=== PATIENT | female | born 1955 | race Caucasian/White ===

== ENCOUNTER 2016-10-21 09:59 | Emergency (ER) | payer OTHER ==
[~2016-10-21 09:59] MED LIST: ALPR0.25 PO; BUTA1CAP29 PO; DIPH25CA58 PO; DULO60CA6 PO; ONDA4TAB10 SL; PRED50TA PO
--- NOTE | 2016-10-21 10:17 | PHYS DOC ---
Past Medical History Past Medical History: Anxiety, Depression, Migraines, TIA Additional Past Medical Histor: "mini stroke" Past Surgical History: Hysterectomy Alcohol Use: Rarely Drug Use: Marijuana Adult General Chief Complaint Chief Complaint: HEADACHE HPI HPI Patient is a 61 year old female who presents with severe headache. She states she has a history of migraines but this is nothing like her typical migraines. She states she was in the shower also she had a severe headache with nausea. She denies any nuchal rigidity, fevers chills. She states light does make headache worse. She describes it as a pounding sensation throughout her entire head. Review of Systems Review of Systems Constitutional: Denies fever or chills [] Eyes: Denies change in visual acuity, redness, or eye pain [] HENT: Denies nasal congestion or sore throat [] Respiratory: Denies cough or shortness of breath [] Cardiovascular: No additional information not addressed in HPI [] GI: Denies abdominal pain, nausea, vomiting, bloody stools or diarrhea [] : Denies dysuria or hematuria [] Musculoskeletal: Denies back pain or joint pain [] Integument: Denies rash or skin lesions [] Neurologic: Denies focal weakness or sensory changes, positive for headache. [] Endocrine: Denies polyuria or polydipsia [] Current Medications Current Medications Current Medications Medications (Trade) Dose Ordered Sig/Otf Start Time Stop Time Status Last Admin Dose Admin Diphenhydramine HCl (Benadryl) 50 mg 1X ONCE 10/21/16 13:30 10/21/16 13:31 DC 10/21/16 13:30 50 MG Iohexol 75 ml 75 ml 1X ONCE 10/21/16 12:00 10/21/16 12:01 DC 10/21/16 12:49 75 ML Ketorolac Tromethamine (Toradol) 30 mg 1X ONCE 10/21/16 14:45 10/21/16 14:46 DC 10/21/16 14:10 30 MG Morphine Sulfate 4 mg PRN Q15MIN PRN 10/21/16 10:30 10/22/16 10:29 10/21/16 13:40 4 MG Ondansetron HCl (Zofran) 4 mg 1X ONCE 10/21/16 10:30 10/21/16 10:31 DC 10/21/16 11:00 4 MG Promethazine HCl/ Sodium Chloride (Phenergan/Iv Sodium Chloride 0.9% 50ml) 51 ml @ 101 mls/hr 1X ONCE 10/21/16 13:30 10/21/16 14:00 DC 10/21/16 14:20 101 MLS/HR Allergies Allergies Allergies Coded Allergies Type Severity Reaction Last Updated Verified Penicillins Allergy Intermediate 12/28/14 Yes Uncoded Allergies Type Severity Reaction Last Updated Verified strawberries Allergy Unknown Unknown 12/30/14 Physical Exam Physical Exam Constitutional: Well developed, well nourished, no acute distress, non-toxic appearance. [] HENT: Normocephalic, atraumatic, bilateral external ears normal, oropharynx moist, no oral exudates, nose normal. [] Eyes: PERRLA, EOMI, conjunctiva normal, no discharge. [] Neck: Normal range of motion, no tenderness, supple, no stridor. [] Cardiovascular:Heart rate regular rhythm, no murmur [] Lungs & Thorax: Bilateral breath sounds clear to auscultation [] Abdomen: Bowel sounds normal, soft, no tenderness, no masses, no pulsatile masses. [] Skin: Warm, dry, no erythema, no rash. [] Back: No tenderness, no CVA tenderness. [] Extremities: No tenderness, no cyanosis, no clubbing, ROM intact, no edema. [] Neurologic: Alert and oriented X 3, normal motor function, normal sensory function, no focal deficits noted. [] Psychologic: Affect normal, judgement normal, mood normal. [] Current Patient Data Vital Signs Vital Signs Date Time Temp Pulse Resp B/P Pulse Ox O2 Delivery O2 Flow Rate FiO2 10/21/16 11:00 60 18 130/60 96 Room Air 10/21/16 10:55 98.1 98.1 Lab Values Laboratory Tests Test 10/21/16 11:15 White Blood Count 8.9x10^3/uL (4.0-11.0) Red Blood Count 4.71x10^6/uL (3.50-5.40) Hemoglobin 14.0g/dL (12.0-15.5) Hematocrit 42.5% (36.0-47.0) Mean Corpuscular Volume 90fL (79-100) Mean Corpuscular Hemoglobin 30pg (25-35) Mean Corpuscular Hemoglobin Concent 33g/dL (31-37) Red Cell Distribution Width 13.7% (11.5-14.5) Platelet Count 218x10^3/uL (140-400) Neutrophils (%) (Auto) 58% (31-73) Lymphocytes (%) (Auto) 31% (24-48) Monocytes (%) (Auto) 7% (0-9) Eosinophils (%) (Auto) 2% (0-3) Basophils (%) (Auto) 1% (0-3) Neutrophils # (Auto) 5.2x10^3uL (1.8-7.7) Lymphocytes # (Auto) 2.8x10^3/uL (1.0-4.8) Monocytes # (Auto) 0.6x10^3/uL (0.0-1.1) Eosinophils # (Auto) 0.2x10^3/uL (0.0-0.7) Basophils # (Auto) 0.1x10^3/uL (0.0-0.2) Prothrombin Time 11.7SEC (11.7-14.0) Prothrombin Time INR 0.9 (0.8-1.1) Sodium Level 140mmol/L (136-145) Potassium Level 4.1mmol/L (3.5-5.1) Chloride Level 104mmol/L (98-107) Carbon Dioxide Level 28mmol/L (21-32) Anion Gap 8 (6-14) Blood Urea Nitrogen 19mg/dL (7-20) Creatinine 0.9mg/dL (0.6-1.0) Estimated GFR (Cockcroft-Gault) 64.1 Glucose Level 106mg/dL (70-99) H Calcium Level 9.3mg/dL (8.5-10.1) Magnesium Level 2.0mg/dL (1.8-2.4) Total Bilirubin 0.3mg/dL (0.2-1.0) Direct Bilirubin 0.1mg/dL (0.0-0.2) Aspartate Amino Transferase (AST) 22U/L (15-37) Alanine Aminotransferase (ALT) 24U/L (14-59) Alkaline Phosphatase 70U/L (46-116) Creatine Kinase 101U/L (26-192) Creatine Kinase MB (Mass) 0.7ng/mL (0.0-3.6) Creatine Kinase MB Relative Index 0.7% (0-4) Troponin I Quantitative < 0.017ng/mL (0.000-0.055) HQ-Zdc-Z-Type Natriuretic Peptide 98pg/mL (0-124) Total Protein 7.7g/dL (6.4-8.2) Albumin 3.7g/dL (3.4-5.0) Thyroid Stimulating Hormone (TSH) 3.432uIU/mL (0.358-3.74) Laboratory Tests 10/21/16 11:15 Laboratory Tests 10/21/16 11:15 EKG EKG [] Radiology/Procedures Radiology/Procedures [facility] [id number] [place], [place] [id number] IMAGING REPORT Signed PATIENT: JUDY ESPANA ACCOUNT: [id number] : 1955 LOCATION: ER AGE: 61 SEX: F EXAM STATUS: REG ER ORD. PHYSICIAN: MARY RAO MD REASON: headache PROCEDURE: CT HEAD WO CONTRAST Clinical indications: Headache and blurred vision. Technique: Noncontrast axial cross sectional scanning of the head was performed. PQRS Compliance Statement: One or more of the following individualized dose reduction techniques were utilized for this examination: 1. Automated exposure control 2. Adjustment of the mA and/or kV according to patient size 3. Use of iterative reconstruction technique Comparison: May 06, 2016. Findings: No acute intracranial hemorrhage or midline shift or mass-effect or hydrocephalus or extra-axial fluid collection is seen. No focal hypodense area or sulci effacement is seen to indicate an acute infarct or edema radiographically. No skull fracture or pneumocephalus is seen. No opacification of the mastoid sinuses or the paranasal sinuses is seen. The maxillary sinuses are not completely seen in this study. Impression: No acute intracranial abnormality is seen. DICTATED and SIGNED BY: SPIKE ENNIS MD DATE: 10/21/16 1111 CC: MARY RAO MD; NO PCP ~ [facility] [address] [place] [address] IMAGING REPORT Signed PATIENT: JUDY ESPANA ACCOUNT: [id number] : 1955 LOCATION: ER AGE: 61 SEX: F EXAM STATUS: REG ER ORD. PHYSICIAN: MARY RAO MD REASON: Headache PROCEDURE: CT ANGIOGRAPHY HEAD AND NECK CTA of the neck and head with contrast, 10/21/2016: History: Headache Multidetector CT imaging was performed from the level of the aortic arch up through the level of the [place] following an IV bolus injection of iodinated contrast material. Multiplanar reconstructions were produced including 3-D volume rendered reconstructions of the major arteries. There is no significant narrowing at the origins of the cervicocephalic arteries from the aortic arch. The left common carotid artery in the neck is widely patent. There is no significant narrowing at the left carotid bifurcation. The left internal carotid artery is widely patent up to the level of the [place]. The left middle cerebral and anterior cerebral arteries and the visualized proximal branches are unremarkable. The anterior communicating artery shows no abnormality. The right common carotid artery in the neck is widely patent. No significant narrowing is evident at the right carotid bifurcation. The right internal carotid artery is widely patent up through the level of the [place]. The anterior cerebral and middle cerebral arteries and their visualized proximal branches are unremarkable. There are patent posterior communicating arteries bilaterally, larger on the right. There is no evidence of aneurysm at the level of the [place]. Both vertebral arteries in the neck are widely patent and are of similar size. The basilar artery is unremarkable. The posterior cerebral arteries and their major branches show no abnormality. IMPRESSION: 1. No significant carotid bifurcation disease. 2. The visualized intracranial arterial circulation shows no abnormality. DICTATED and SIGNED BY: SATNAM RUEDA MD DATE: 10/21/16 1313 CC: MARY RAO MD; NO PCP ~ Impressions: Headache Course & Med Decision Making Course & Med Decision Making Pertinent Labs and Imaging studies reviewed. (See chart for details) Patient had a noncontrast CT of her head did not show any acute abnormalities and then a CT angiogram of head and neck also nonacute. She received IV Toradol , Phenergan and Benadryl and her pain has substantially decreased. I've offered her admission however she would like to go home. She is being discharged with Phenergan and told to take [id number] Benadryl for her headache returns. Return precautions given she is a follow-up with primary care physician. She specifically instructed if she develops a fever, confusion, neck stiffness, or other concerns to return back to ER. Her and her is agreeable to plan. Dragon Disclaimer Dragon Disclaimer This electronic medical record was generated, in whole or in part, using a voice recognition dictation system. Departure Departure Impression: Primary Impression: Migraine Disposition: 01 HOME, SELF-CARE Condition: IMPROVED Referrals: SUSSY DAMIAN (PCP) Patient Instructions: General Headache Without Cause Additional Instructions: The CAT scan of her head and neck did not show any bleeding or other abnormalities. Your migraine type headache got better with Phenergan, Benadryl, Toradol. Being discharged home. You were offered admission, however he felt like he rather go home. Your being discharged with Phenergan and he can purchase [id number] Benadryl. If her headache returns, she can take these medicines as instructed. Benadryl 1 to 2 tablets every 4-6 hours as needed. She developed a fever, neck stiffness, confusion, or other concerns please return back to emergency department. He should follow up with her primary care physician within the next 4-5 days. Scripts Promethazine Hcl 25 Mg Tablet1 Tab PO PRN Q6HRS #20 TAB Prov:MARY RAO MD 10/21/16 MARY RAO MD Oct 21, 2016 10:16
[2016-10-21] MEDS ORDERED: ONDANSETRON PF 4 MG/2 ML VIAL. IV ONE (10:30)
[2016-10-21] MEDS: MORPHINE SULFATE 4 MG/ML DISP.SYRIN. IV/SQ PRN ×4 (11:00→13:40)
--- NOTE | 2016-10-21 11:16 | RAD ---
Clinical indications: Headache and blurred vision. Technique: Noncontrast axial cross sectional scanning of the head was performed. PQRS Compliance Statement: One or more of the following individualized dose reduction techniques were utilized for this examination: 1. Automated exposure control 2. Adjustment of the mA and/or kV according to patient size 3. Use of iterative reconstruction technique Comparison: May 06, 2016. Findings: No acute intracranial hemorrhage or midline shift or mass-effect or hydrocephalus or extra-axial fluid collection is seen. No focal hypodense area or sulci effacement is seen to indicate an acute infarct or edema radiographically. No skull fracture or pneumocephalus is seen. No opacification of the mastoid sinuses or the paranasal sinuses is seen. The maxillary sinuses are not completely seen in this study. Impression: No acute intracranial abnormality is seen.
[2016-10-21 11:50] LABS: CALCIUM 9.3 mg/dL (8.5-10.1); CREATININE 0.9 mg/dL (0.6-1.0); GFR 64.1; POTASSIUM 4.1 mmol/L (3.5-5.1)
[2016-10-21 11:51] LABS: BASO # 0.1 x10^3/uL (0.0-0.2); BASO % 1 % (0-3); EOS % 2 % (0-3); HEMATOCRIT 42.5 % (36.0-47.0); LYMPH # 2.8 x10^3/uL (1.0-4.8); LYMPH % 31 % (24-48); MEAN CORPUSCULAR HEMOGLOBIN 30 pg (25-35); MEAN CORPUSCULAR HGB CONC 33 g/dL (31-37); MEAN CORPUSCULAR VOLUME 90 fL (79-100); MONO % 7 % (0-9); NEUT % 58 % (31-73); PLATELET COUNT 218 x10^3/uL (140-400); RED BLOOD COUNT 4.71 x10^6/uL (3.50-5.40); RED CELL DISTRIBUTION WIDTH 13.7 % (11.5-14.5); WHITE BLOOD COUNT 8.9 x10^3/uL (4.0-11.0)
[2016-10-21 11:54] LABS: INR 0.9 (0.8-1.1); PROTHROMBIN TIME PATIENT 11.7 SEC (11.7-14.0)
[2016-10-21 11:56] LABS: ALBUMIN 3.7 g/dL (3.4-5.0); DIRECT BILIRUBIN 0.1 mg/dL (0.0-0.2); TOTAL BILIRUBIN 0.3 mg/dL (0.2-1.0); TOTAL PROTEIN 7.7 g/dL (6.4-8.2)
[2016-10-21] MEDS ORDERED: IOHEXOL 300 MG/ML 75 ML VIAL IV ONE (12:00)
[2016-10-21 12:01] LABS: CKMB INDEX 0.7 % (0-4); CKMB MASS 0.7 ng/mL (0.0-3.6)
--- NOTE | 2016-10-21 13:26 | RAD ---
CTA of the neck and head with contrast, 10/21/2016: History: Headache Multidetector CT imaging was performed from the level of the aortic arch up through the level of the [place] following an IV bolus injection of iodinated contrast material. Multiplanar reconstructions were produced including 3-D volume rendered reconstructions of the major arteries. There is no significant narrowing at the origins of the cervicocephalic arteries from the aortic arch. The left common carotid artery in the neck is widely patent. There is no significant narrowing at the left carotid bifurcation. The left internal carotid artery is widely patent up to the level of the [place]. The left middle cerebral and anterior cerebral arteries and the visualized proximal branches are unremarkable. The anterior communicating artery shows no abnormality. The right common carotid artery in the neck is widely patent. No significant narrowing is evident at the right carotid bifurcation. The right internal carotid artery is widely patent up through the level of the [place]. The anterior cerebral and middle cerebral arteries and their visualized proximal branches are unremarkable. There are patent posterior communicating arteries bilaterally, larger on the right. There is no evidence of aneurysm at the level of the [place]. Both vertebral arteries in the neck are widely patent and are of similar size. The basilar artery is unremarkable. The posterior cerebral arteries and their major branches show no abnormality. IMPRESSION: 1. No significant carotid bifurcation disease. 2. The visualized intracranial arterial circulation shows no abnormality.
[2016-10-21] MEDS ORDERED: DIPHENHYDRAMINE 50 MG/ML VIAL. IV ONE (13:30)
[2016-10-21] MEDS ORDERED: PROMETHAZINE 25 MG in IV NORMAL SALINE 50ML 50 ML IV ONE (13:30)
--- NOTE | 2016-10-21 14:07 | EKG ---
[facility] [address] [place] [address] Test Date: 2016-10-21 Test Time: 10:21:43 Pat Name: JUDY ESPANA Department: Room: Gender: F Exercise Manager: : 1955 Requested By: MARY RAO Order Number: [id number] Reading MD: iMko Chester Measurements Intervals Comfort Rate: 63 P: 50 IA: 158 QRS: 6 QRSD: 76 T: 43 QT: 380 QTc: 392 Interpretive Statements SINUS RHYTHM Electronically Signed On 11-03-2016 11:53:45 CDT by Miko Chester
[2016-10-21] MEDS ORDERED: KETOROLAC TROMETHAMINE 30 MG/ML INJ. IV ONE (14:45)
[2016-10-21] MEDS ORDERED: PROM25TA10 PO (14:54)
[2016-10-21 15:00] VITALS: BP 124/72
== END 2016-10-21 14:15 | disposition home or self-care (01) ==
LOC: ER 09:59
DX: G43.909 Migraine, unspecified, not intractable, without status migrainosus (principal); F41.9 Anxiety disorder, unspecified; F32.9 Major depressive disorder, single episode, unspecified; F12.10 Cannabis abuse, uncomplicated; Z90.710 Acquired absence of both cervix and uterus; Z88.0 Allergy status to penicillin; Z91.018 Allergy to other foods
CPT/HCPCS: 36415; 70450; 70496; 70498; 80048; 80076; 82553; 83735; 83880; 84443; 84484; 85027; 85610; 93005; 96365; 96375; 96376; 99285; J1200; J1885; J2270; J2405; J2550; Q9967

== ENCOUNTER 2016-10-26 09:50 | Emergency (ER) | payer OTHER ==
[~2016-10-26] VITALS: Ht 165.1 cm; Wt 61.2 kg
[~2016-10-26 09:50] MED LIST changes: +PROM25TA10 PO
[2016-10-26] MEDS ORDERED: DIPHENHYDRAMINE 50 MG/ML VIAL. IV ONE (10:45)
[2016-10-26] MEDS ORDERED: METOCLOPRAMIDE HCL 10 MG/2 ML VIAL. IV ONE (10:45)
[2016-10-26] MEDS ORDERED: IV NORMAL SALINE 1000ML BAG 1,000 ML IV ONE (10:45)
--- NOTE | 2016-10-26 10:49 | PHYS DOC ---
Past Medical History Past Medical History: Anxiety, Depression, Migraines, TIA Additional Past Medical Histor: "mini stroke" Past Surgical History: Hysterectomy, Other Additional Past Surgical Histo: bladder sling Additional Information: 09/12 ppd Alcohol Use: Rarely Drug Use: Marijuana Adult General Chief Complaint Chief Complaint: HEADACHE HPI HPI 61-year-old female presenting to the emergency department with a headache. She does have a history of migraine headaches. She is been seen here in our emergency department before previously worked up for subarachnoid hemorrhage including a lumbar puncture with no red blood cells clear fluid. Neurology has been consulted after hospitalization. She has had a CT angiogram and a noncontrast CT of the head which are both unremarkable for acute pathology. She presents with similar pain and headache as previous. She denies it being sudden in onset. It radiates from the top of the head down to the neck. Not associated with vision changes numbness weakness or tingling. She denies slurring of speech or weakness of the upper or lower extremities. Review of systems is negative for chest pain shortness of breath vomiting fevers chills. She denies neck stiffness or meningismus. All other review of systems is negative unless otherwise noted in history of present illness. Review of Systems Review of Systems SEE ABOVE. Current Medications Current Medications Current Medications Medications (Trade) Dose Ordered Sig/Otf Start Time Stop Time Status Last Admin Dose Admin Diphenhydramine HCl 50 mg 50 mg 1X ONCE 10/26/16 10:45 10/26/16 10:46 DC 10/26/16 12:01 50 MG Metoclopramide HCl (Reglan) 20 mg 1X ONCE 10/26/16 10:45 10/26/16 10:46 DC 10/26/16 12:00 20 MG Sodium Chloride (Iv Sodium Chloride 0.9% 1000ml Bag) 1,000 ml @ 1,000 mls/hr 1X ONCE 10/26/16 10:45 10/26/16 11:44 DC 10/26/16 12:00 1,000 MLS/HR Allergies Allergies Allergies Coded Allergies Type Severity Reaction Last Updated Verified strawberry Allergy Severe throat swelling, hives 10/26/16 Yes Penicillins Allergy Intermediate rash 10/26/16 Yes amoxicillin Allergy Intermediate rash 10/26/16 Yes Physical Exam Physical Exam Constitutional: Well developed, well nourished, no acute distress, non-toxic appearance. HENT: Normocephalic, atraumatic, bilateral external ears normal, oropharynx moist, no oral exudates, nose normal. [] Eyes: PERRLA, EOMI, conjunctiva normal, no discharge. Neck: Normal range of motion, no tenderness, supple, no stridor. Negative bradinsky's sign. Negative Kernig sign. Cardiovascular:Heart rate regular rhythm, no murmur Lungs & Thorax: Bilateral breath sounds clear to auscultation [] Abdomen: Bowel sounds normal, soft, no tenderness, no masses, no pulsatile masses. Skin: Warm, dry, no erythema, no rash. [] Back: No tenderness, no CVA tenderness. Extremities: No tenderness, no cyanosis, no clubbing, ROM intact, no edema. [] Neurologic: Alert and oriented X 3, normal motor function, normal sensory function, no focal deficits noted. Psychologic: Affect normal, judgement normal, mood normal. [] Current Patient Data Vital Signs Vital Signs Date Time Temp Pulse Resp B/P Pulse Ox O2 Delivery O2 Flow Rate FiO2 10/26/16 09:54 97.8 75 20 134/79 98 Room Air 97.8 EKG EKG [] Radiology/Procedures Radiology/Procedures [] Course & Med Decision Making Course & Med Decision Making Pertinent Labs and Imaging studies reviewed. (See chart for details) [] 61-year-old female presenting to the emergency department today with headache consistent with previous migraines. She previously has been worked up with angiogram CT of the head and lumbar puncture which were unremarkable. She has seen our doctor hemant our neurologist. She took her migraine medication home with minimal relief. Here in the emergency department she received IV Reglan and Benadryl and fluids. On reexamination she was feeling much better and subsequently discharged home to follow up with her PCP over the next 2-3 days. Dragon Disclaimer Dragon Disclaimer This electronic medical record was generated, in whole or in part, using a voice recognition dictation system. Departure Departure Impression: Primary Impression: Headache Disposition: HOME, SELF-CARE Condition: STABLE Referrals: NO PCP (PCP) NEENA WOODS MD, FERILYN MD Patient Instructions: General Headache Without Cause Additional Instructions: Thank you for allowing us to participate in your care today. Followup with your primary care physician in 3 days if your symptoms do not improve. If you do not have a primary care provider you can ask for a list of our primary care providers. Return to the emergency department you have any new or concerning findings. This should be evaluated by the primary care physician and any necessary consulting services for continued management within a few days after discharge. Return to emergency room if you have any new or concerning symptoms including but not limited to fever, chills, nausea, vomiting, intractable pain, any new rashes, chest pain, shortness of air, uncontrolled bleeding, difficulty breathing, and/or vision loss. You may have been prescribed medication that can change in your level of thinking and ability to operate machinery. These medications include hydrocodone and Ativan. Also, Benadryl has been known to do this as well. Be sure to check with your pharmacist and ask if the medications you've prescribed can affect your level of consciousness. I recommend not operating heavy machinery or driving while on medication such as these. Problem Qualifiers Primary Impression: Headache Headache type: unspecified Headache chronicity pattern: acute headache Intractability: not intractable Qualified Code: R51 - Headache SOPHIA HSU MD Oct 26, 2016 10:49
[2016-10-26 12:30] VITALS: BP 114/73
== END 2016-10-26 13:08 | disposition home or self-care (01) ==
LOC: ER 09:50
DX: R51 Headache (principal); G43.909 Migraine, unspecified, not intractable, without status migrainosus; F12.10 Cannabis abuse, uncomplicated; F17.200 Nicotine dependence, unspecified, uncomplicated; F32.9 Major depressive disorder, single episode, unspecified; F41.9 Anxiety disorder, unspecified; Z86.73 Personal history of transient ischemic attack (TIA), and cerebral infarction without residual deficits; Z88.0 Allergy status to penicillin; Z88.1 Allergy status to other antibiotic agents; Z91.018 Allergy to other foods
CPT/HCPCS: 96361; 96374; 96375; 99284; J1200; J2765; J7030

== ENCOUNTER → 2016-11-09 | Outpatient (CLI) | payer OTHER ==
[2016-10-26 12:30] VITALS: BP 114/73
--- NOTE | 2016-11-09 15:41 | RAD ---
CT of the chest without contrast, 11/09/2016: History: Lung cancer screening, smoking history one pack per day for 45 years, current smoker Noncontrast low-dose scans were obtained with multiplanar reconstructions produced. There is a calcified granuloma medially in the right upper lobe. There is also a small calcified granuloma medially in the left upper lobe adjacent to the aortic arch. There are scattered linear opacities in both lungs compatible with scars. There are streaky groundglass opacities in both lung bases suggesting atelectasis and/or scarring. These opacities have increased in the left lung base since the 12/29/2014 study. There is minimal dependent atelectasis posteriorly in the lungs. On image 118 of series #2 there is a 3 mm smooth, rounded, noncalcified nodule in the right upper lobe. No other pulmonary nodule or mass is identified. There is no evidence of pleural fluid. There is minimal calcific plaquing of the thoracic aorta without evidence of aneurysm. No mediastinal adenopathy is evident. Incidental note is made of several gallstones in the gallbladder no pericholecystic edema is seen. There are scattered spurs in the spine. A mild superior endplate deformity at T12 is probably on a degenerative basis. IMPRESSION: 1. 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 2. Mild to moderate streaky atelectasis and/or scarring in the lung bases. 3. Tiny 3 mm noncalcified right upper lobe pulmonary nodule. This qualifies as a Lung-RADS Category [address] follow-up in 12 months is suggested. 4. Cholelithiasis PQRS Compliance Statement: One or more of the following individualized dose reduction techniques were utilized for this examination: 1. Automated exposure control 2. Adjustment of the mA and/or kV according to patient size 3. Use of iterative reconstruction technique
== END | disposition home or self-care (01) ==
LOC: CT 10:13
PROVIDERS: ATTEND Family Medicine
DX: J44.9 Chronic obstructive pulmonary disease, unspecified (principal); J98.11 Atelectasis; R91.1 Solitary pulmonary nodule; K80.20 Calculus of gallbladder without cholecystitis without obstruction; F17.200 Nicotine dependence, unspecified, uncomplicated
CPT/HCPCS: 71250

== ENCOUNTER 2016-11-17 16:33 | Emergency (ER) | payer OTHER ==
[~2016-11-17] VITALS: Ht 165.1 cm; Wt 61.2 kg
[2016-11-17] MEDS ORDERED: PROCHLORPERAZINE 10 MG/2 ML VIAL. IV ONE (17:15)
[2016-11-17] MEDS ORDERED: METOCLOPRAMIDE HCL 10 MG/2 ML VIAL. IV ONE (17:15)
[2016-11-17] MEDS ORDERED: IV NORMAL SALINE 1000ML BAG 1,000 ML IV ONE (17:15)
[2016-11-17] MEDS ORDERED: diphenhydrAMINE 50 MG/ML VIAL IVP ONE (17:15)
[2016-11-17] MEDS ORDERED: KETOROLAC TROMETHAMINE 30 MG/ML INJ. IV ONE (19:15)
[2016-11-17 19:33] VITALS: BP 124/66
--- NOTE | 2016-11-18 00:26 | ED.ADGEN ---
Past Medical History Past Medical History: Anxiety, Depression, Migraines, TIA Additional Past Medical Histor: "mini stroke" Past Surgical History: Hysterectomy, Other Additional Past Surgical Histo: bladder sling Alcohol Use: Rarely Drug Use: Marijuana Adult General Chief Complaint Chief Complaint: HEADACHE HPI HPI Patient is a 61 year old with h/o chronic AGUIRRE weeks who presents with pearly controlled pain. Patient also reports fullness tearing of right ear, and right posterior neck pain. Denies injury or trauma. Patient is currently being treated by her PCP and MRI. She is taking Topamax for migraine prophylaxis and ibuprofen with limited improvement. Reports nausea, denies vomiting. No fever chills, neck stiffness. No other acute symptoms or complaints. Review of Systems Review of Systems ROS as per hPI Current Medications Current Medications Current Medications Medications (Trade) Dose Ordered Sig/Otf Start Time Stop Time Status Last Admin Dose Admin Diphenhydramine HCl (Benadryl) 25 mg 1X ONCE 11/17/16 17:15 11/17/16 17:16 DC 11/17/16 17:29 25 MG Ketorolac Tromethamine (Toradol) 30 mg 1X ONCE 11/17/16 19:15 11/17/16 19:16 DC 11/17/16 18:59 30 MG Metoclopramide HCl (Reglan) 10 mg 1X ONCE 11/17/16 17:15 11/17/16 17:16 DC 11/17/16 17:32 10 MG Prochlorperazine Edisylate (Compazine) 10 mg 1X ONCE 11/17/16 17:15 11/17/16 17:16 DC 11/17/16 17:30 10 MG Sodium Chloride 1,000 ml @ 1,000 mls/hr 1X ONCE 11/17/16 17:15 11/17/16 18:14 DC 11/17/16 17:28 1,000 MLS/HR Allergies Allergies Allergies Coded Allergies Type Severity Reaction Last Updated Verified strawberry Allergy Severe throat swelling, hives 10/26/16 Yes Penicillins Allergy Intermediate rash 10/26/16 Yes amoxicillin Allergy Intermediate rash 10/26/16 Yes Physical Exam Physical Exam Constitutional: Well developed, well nourished, no acute distress, non-toxic appearance. HENT: Normocephalic, no temporal scalp TTP, atraumatic, bilateral external ears normal, TM's pink and with clear effusions, oropharynx moist, no oral exudates, nose normal. Eyes: PERRL. Neck: Normal range of motion, no midline TTP. Cardiovascular:Heart rate regular rhythm, no murmur. Lungs & Thorax: Bilateral breath sounds clear. Abdomen: Bowel sounds normal, soft, no tenderness. Skin: Warm, dry. Back: No tenderness. Extremities: No tenderness. Neurologic: Alert and oriented X 3, normal motor function, normal sensory function, no focal deficits noted. Psychologic: Affect normal, judgement normal, mood normal. Current Patient Data Vital Signs Vital Signs Date Time Temp Pulse Resp B/P (MAP) Pulse Ox O2 Delivery O2 Flow Rate FiO2 11/17/16 19:33 54 16 124/66 (85) 94 Room Air 11/17/16 17:00 98.2 98.2 EKG EKG [] Radiology/Procedures Radiology/Procedures [] Impressions: Chronic migraine w/o acute neuro deficits. Course & Med Decision Making Course & Med Decision Making Pertinent Labs and Imaging studies reviewed. (See chart for details) [Pain improved with limited improvement. Patient requesting DC.] Dragon Disclaimer Dragon Disclaimer This electronic medical record was generated, in whole or in part, using a voice recognition dictation system. HUA LÓPEZ DO November 18, 2016 00:26
== END 2016-11-17 19:38 | disposition home or self-care (01) ==
LOC: ER 16:33
DX: G43.909 Migraine, unspecified, not intractable, without status migrainosus (principal); M54.2 Cervicalgia; G89.29 Other chronic pain; F12.10 Cannabis abuse, uncomplicated; F41.9 Anxiety disorder, unspecified; F32.9 Major depressive disorder, single episode, unspecified; Z86.73 Personal history of transient ischemic attack (TIA), and cerebral infarction without residual deficits; Z88.1 Allergy status to other antibiotic agents; Z88.0 Allergy status to penicillin; Z91.018 Allergy to other foods
CPT/HCPCS: 96361; 96374; 96375; 99285; J0780; J1200; J1885; J2765; J7030

== ENCOUNTER → 2017-10-07 | Outpatient (CLI) | payer OTHER | END | disposition home or self-care (01) | LOC: CT 08:47 | DX: Z12.2 Encounter for screening for malignant neoplasm of respiratory organs (principal); J84.10 Pulmonary fibrosis, unspecified; R91.8 Other nonspecific abnormal finding of lung field; R41.0 Disorientation, unspecified | CPT/HCPCS: 70450; 71250 ==

== ENCOUNTER → 2017-10-14 | Outpatient (CLI) | payer OTHER | END | disposition home or self-care (01) | LOC: MAMMO 12:48 | DX: Z12.31 Encounter for screening mammogram for malignant neoplasm of breast (principal) | CPT/HCPCS: 77063; 77067 ==

== ENCOUNTER 2018-10-17 06:12 | Inpatient (IN) | payer OTHER ==
[~2018-10-17] VITALS: Ht 165.1 cm; Wt 68.5 kg
[2018-10-17] MEDS ORDERED: ONDANSETRON PF 4 MG/2 ML VIAL. IV ONE (06:30)
[2018-10-17] MEDS ORDERED: IV NORMAL SALINE 1000ML BAG 1,000 ML IV SCH (06:30)
[2018-10-17] MEDS ORDERED: IOHEXOL 300 MG/ML 100ML VIAL. IV ONE (06:45)
[2018-10-17] MEDS ORDERED: IOHEXOL 240 MG/ML 50ML VIAL. PO ONE (06:45)
[2018-10-17] MEDS ORDERED: CONTRAST GIVEN. MC PRN (06:45)
[2018-10-17 06:47] LABS: BASO # 0.1 x10^3/uL (0.0-0.2); BASO % 1 % (0-3); EOS # 0.3 x10^3/uL (0.0-0.7); EOS % 3 % (0-3); HEMATOCRIT 41.5 % (36.0-47.0); HEMOGLOBIN 13.9 g/dL (12.0-15.5); LYMPH # 2.4 x10^3/uL (1.0-4.8); LYMPH % 21 % (24-48); MEAN CORPUSCULAR HEMOGLOBIN 29 pg (25-35); MEAN CORPUSCULAR HGB CONC 33 g/dL (31-37); MEAN CORPUSCULAR VOLUME 88 fL (79-100); MONO % 9 % (0-9); NEUT # 7.9 x10^3uL (1.8-7.7); NEUT % 67 % (31-73); PLATELET COUNT 241 x10^3/uL (140-400); RED BLOOD COUNT 4.72 x10^6/uL (3.50-5.40); WHITE BLOOD COUNT 11.7 x10^3/uL (4.0-11.0)
[2018-10-17 07:00] LABS: CALCIUM 9.2 mg/dL (8.5-10.1); CREATININE 0.7 mg/dL (0.6-1.0); GFR 85.1; POTASSIUM 3.9 mmol/L (3.5-5.1)
[2018-10-17 07:04] LABS: FECAL OB PT POSITIVE (NEG)
[2018-10-17 07:15] LABS: ALBUMIN 3.1 g/dL (3.4-5.0); ALBUMIN/GLOBULIN RATIO 0.8 (1.0-1.7); TOTAL BILIRUBIN 0.3 mg/dL (0.2-1.0); TOTAL PROTEIN 7.1 g/dL (6.4-8.2)
[2018-10-17] MEDS ORDERED: fentaNYL PF VIAL 100 MCG/2 ML VIAL IV ONE (07:15)
--- NOTE | 2018-10-17 07:16 | PHYS DOC ---
Past Medical History Past Medical History: Anxiety, Depression, Migraines, TIA, Other Additional Past Medical Histor: "mini stroke" Past Surgical History: Hysterectomy, Other Additional Past Surgical Histo: bladder sling Smoking: Cigarettes Alcohol Use: Rarely Drug Use: Marijuana Adult General Chief Complaint Chief Complaint: ABDOMINAL PAIN HPI HPI Patient is a 63 year old female who brought in by EMS because of abdominal pain and diarrhea. Patient states she started to have multiple episodes of nonbloody diarrhea for the last 10 days and had about 10-20 episodes of light green color stool every day. Patient complaining of frequent episodes of vomiting and generalized abdominal pain for the last 2 or 3 days as a constant pain and rated her pain 10 over 10. Patient states she vomited more than 20 times a day that usually happens after eating. Patient complaining of chills without fever, chest pain, shortness of breath, urinary symptom. Patient states her had episodes of diarrhea several days ago that last for a short time. Patient states she took Bactrim about 3 weeks ago for UTI symptom. Review of Systems Review of Systems Constitutional: Denies fever or chills [] Eyes: Denies change in visual acuity, redness, or eye pain [] HENT: Denies nasal congestion or sore throat [] Respiratory: Denies cough or shortness of breath [] Cardiovascular: No additional information not addressed in HPI [] GI: Reports abdominal pain, nausea, vomiting, diarrhea [] : Denies dysuria or hematuria [] Musculoskeletal: Denies back pain or joint pain [] Integument: Denies rash or skin lesions [] Neurologic: Denies headache, focal weakness or sensory changes [] Endocrine: Denies polyuria or polydipsia [] All other systems were reviewed and found to be within normal limits, except as documented in this note. Current Medications Current Medications Current Medications Medications (Trade) Dose Ordered Sig/Otf Start Time Stop Time Status Last Admin Dose Admin Fentanyl Citrate (Fentanyl 2ml Vial) 50 mcg 1X ONCE 10/17/18 07:15 10/17/18 07:16 DC 10/17/18 07:18 50 MCG Info (CONTRAST GIVEN -- Rx MONITORING) 1 each PRN DAILY PRN 10/17/18 06:45 10/19/18 06:44 Iohexol (Omnipaque 240 Mg/ml) 50 ml 1X ONCE 10/17/18 06:45 10/17/18 06:46 DC 10/17/18 06:45 50 ML Iohexol (Omnipaque 300 Mg/ml) 75 ml 1X ONCE 10/17/18 06:45 10/17/18 06:46 DC 10/17/18 06:45 75 ML Ketorolac Tromethamine (Toradol 30mg Vial) 30 mg 1X ONCE 10/17/18 08:45 10/17/18 08:46 DC 10/17/18 08:46 30 MG Ondansetron HCl (Zofran) 4 mg 1X ONCE 10/17/18 06:30 10/17/18 06:31 DC 10/17/18 06:34 4 MG Sodium Chloride 1,000 ml @ 1,000 mls/hr Q1H 10/17/18 06:30 10/17/18 07:29 DC 10/17/18 06:33 1,000 MLS/HR Allergies Allergies Allergies Coded Allergies Type Severity Reaction Last Updated Verified strawberry Allergy Severe throat swelling, hives 10/26/16 Yes Penicillins Allergy Intermediate rash 10/26/16 Yes amoxicillin Allergy Intermediate rash 10/26/16 Yes Physical Exam Physical Exam Constitutional: Well nourished, mild distress, non-toxic appearance. [] HENT: Normocephalic, atraumatic, oropharynx dry.] Eyes: PERRLA, EOMI, conjunctiva normal, no discharge. [] Neck: Normal range of motion, no tenderness, supple, no stridor. [] Cardiovascular:Heart rate regular rhythm, no murmur [] Lungs & Thorax: Bilateral breath sounds clear to auscultation [] Abdomen: Bowel sounds normal, mildly distended abdomen with gas, voluntary guarding, soft, no tenderness, no masses, no pulsatile masses. [] Skin: Warm, dry, no erythema, no rash. [] Back: No tenderness, no CVA tenderness. [] Extremities: No tenderness, no cyanosis, no clubbing, ROM intact, no edema. [] Neurologic: Alert and oriented X 3, normal motor function, normal sensory function, no focal deficits noted. [] Psychologic: Affect anxious, judgement normal, mood normal. [] Current Patient Data Vital Signs Vital Signs Date Time Temp Pulse Resp B/P (MAP) Pulse Ox O2 Delivery O2 Flow Rate FiO2 10/17/18 07:45 15 100 Room Air 10/17/18 07:21 63 145/90 (108) 10/17/18 06:19 97.9 97.9 Lab Values Laboratory Tests Test 10/17/18 06:30 10/17/18 06:50 10/17/18 08:37 White Blood Count 11.7 x10^3/uL (4.0-11.0) H Red Blood Count 4.72 x10^6/uL (3.50-5.40) Hemoglobin 13.9 g/dL (12.0-15.5) Hematocrit 41.5 % (36.0-47.0) Mean Corpuscular Volume 88 fL (79-100) Mean Corpuscular Hemoglobin 29 pg (25-35) Mean Corpuscular Hemoglobin Concent 33 g/dL (31-37) Red Cell Distribution Width 14.0 % (11.5-14.5) Platelet Count 241 x10^3/uL (140-400) Neutrophils (%) (Auto) 67 % (31-73) Lymphocytes (%) (Auto) 21 % (24-48) L Monocytes (%) (Auto) 9 % (0-9) Eosinophils (%) (Auto) 3 % (0-3) Basophils (%) (Auto) 1 % (0-3) Neutrophils # (Auto) 7.9 x10^3uL (1.8-7.7) H Lymphocytes # (Auto) 2.4 x10^3/uL (1.0-4.8) Monocytes # (Auto) 1.0 x10^3/uL (0.0-1.1) Eosinophils # (Auto) 0.3 x10^3/uL (0.0-0.7) Basophils # (Auto) 0.1 x10^3/uL (0.0-0.2) Sodium Level 139 mmol/L (136-145) Potassium Level 3.9 mmol/L (3.5-5.1) Chloride Level 102 mmol/L (98-107) Carbon Dioxide Level 27 mmol/L (21-32) Anion Gap 10 (6-14) Blood Urea Nitrogen 15 mg/dL (7-20) Creatinine 0.7 mg/dL (0.6-1.0) Estimated GFR (Cockcroft-Gault) 85.1 BUN/Creatinine Ratio 21 (6-20) H Glucose Level 122 mg/dL (70-99) H Lactic Acid Level 1.4 mmol/L (0.4-2.0) Calcium Level 9.2 mg/dL (8.5-10.1) Total Bilirubin 0.3 mg/dL (0.2-1.0) Aspartate Amino Transferase (AST) 17 U/L (15-37) Alanine Aminotransferase (ALT) 27 U/L (14-59) Alkaline Phosphatase 93 U/L (46-116) Total Protein 7.1 g/dL (6.4-8.2) Albumin 3.1 g/dL (3.4-5.0) L Albumin/Globulin Ratio 0.8 (1.0-1.7) L Lipase 839 U/L (73-393) H Stool Occult Blood Positive (NEG) Urine Collection Type Unknown Urine Color Yellow Urine Clarity Clear Urine pH 6.5 Urine Specific [place] <=1.005 Urine Protein Negative mg/dL (NEG-TRACE) Urine Glucose (UA) Negative mg/dL (NEG) Urine Ketones (Stick) Negative mg/dL (NEG) Urine Blood Negative (NEG) Urine Nitrite Negative (NEG) Urine Bilirubin Negative (NEG) Urine Urobilinogen Dipstick 0.2 mg/dL (0.2 mg/dL) Urine Leukocyte Esterase Negative (NEG) Urine RBC 0 /HPF (0-2) Urine WBC 0 /HPF (0-4) Urine Squamous Epithelial Cells Few /LPF Urine Bacteria 0 /HPF (0-FEW) Urine Opiates Screen Neg (NEG) Urine Methadone Screen Neg (NEG) Urine Barbiturates Neg (NEG) Urine Phencyclidine Screen Neg (NEG) Urine Amphetamine/Methamphetamine Neg (NEG) Urine Benzodiazepines Screen Pos (NEG) Urine Cocaine Screen Neg (NEG) Urine Cannabinoids Screen Pos (NEG) Urine Ethyl Alcohol Neg (NEG) Laboratory Tests 10/17/18 06:30 Laboratory Tests 10/17/18 06:30 EKG EKG [] Radiology/Procedures Radiology/Procedures [facility] [address] [place], [place] [id number] IMAGING REPORT Signed PATIENT: JUDY ESPANA ACCOUNT: [id number] : 1955 LOCATION: ER AGE: 63 SEX: F EXAM STATUS: REG ER ORD. PHYSICIAN: ALFRED GASTELUM MD REASON: Abdominal pain PROCEDURE: CT ABD PELV W/ORAL&IV CONTRAST CT of the abdomen and pelvis with contrast 10/17/2018 8:49 AM Indication: Abdominal pain, acute. Comparison study: CT of the abdomen and pelvis December 28, 2014 Technique: Multidetector CT imaging of the abdomen and pelvis was performed following the administration of IV contrast. Findings: Minimal atelectasis appears to be present lung bases. The liver is grossly unremarkable. There is cholelithiasis. Possible gallbladder wall thickening or trace pericholecystic fluid may be present, best appreciated on coronal views. Pancreas is unremarkable. Spleen is within normal limits. Renal cortical defects are seen in the left possibly representing prior infarcts or scarring. Mild distention of the renal collecting systems seen bilaterally. The bladder is distended. Findings may be physiologic. There is no evidence of bowel obstruction. No acute inflammatory changes involving the bowel are identified. Increased stool appears to be present throughout the colon. Correlate with clinical evidence of constipation. The appendix is not visualized. Correlate with surgical history. Hysterectomy noted. No significant free fluid is seen in the pelvis. No pneumoperitoneum is identified. IMPRESSION: 1. Cholelithiasis possible gallbladder wall thickening or trace pericholecystic fluid. Acute calculus cholecystitis not excluded. Ultrasound evaluation recommended 2. Increased stool throughout the colon. Correlate with evidence of constipation. 3. Attention of the bladder and mild distention of the renal collecting systems. Findings felt to most likely be physiologic. Post void evaluation via ultrasound could be performed for confirmation CT DOSING PQRS STATEMENT: One or more of the following individualized dose reduction techniques were utilized for this examination: 1. Automated exposure control 2. Adjustment of the mA and/or kV according to patient size 3. Use of iterative reconstruction technique Electronically signed by: Evgeny Mcgill MD (10/17/2018 8:55 AM) [facility] DICTATED and SIGNED BY: EVGENY MCGILL MD DATE: 10/17/18 0855 Course & Med Decision Making Course & Med Decision Making Pertinent Labs and Imaging studies reviewed. (See chart for details) Evaluation of patient in ER showed 63-year-old female patient with history of anxiety and complaining of diarrhea for 10 days and nausea and vomiting with abdominal pain for 3 days. Patient had guarding of abdomen with mild distention. Labs showed mild leukocytosis and elevation of lipase with normal liver function tests. CT showed cholelithiasis. Patient was treated with IV fluid, Zofran, fentanyl and Toradol and was able to fall asleep. Dr. Sussy Reyes accepted admission at 0916. Dragon Disclaimer Dragon Disclaimer This electronic medical record was generated, in whole or in part, using a voice recognition dictation system. Departure Departure Impression: Primary Impression: Acute pancreatitis Additional Impressions: Cholelithiasis Marijuana abuse Tobacco abuse Tobacco abuse counseling Anxiety Disposition: ADMITTED INPATIENT (at 0916) Admitting Physician: Sussy Reyes (accepted admission at 0916) Condition: IMPROVED Referrals: SUSSY REYES MD (PCP) Problem Qualifiers Primary Impression: Acute pancreatitis Pancreatitis type: biliary Acute pancreatitis complication: unspecified Qualified Codes: K85.10 - Biliary acute pancreatitis without necrosis or infection Additional Impressions: Cholelithiasis Cholelithiasis location: gallbladder Cholecystitis presence: without cholecystitis Biliary obstruction: without biliary obstruction Qualified Codes: K80.20 - Calculus of gallbladder without cholecystitis without obstruction ALFRED GASTELUM MD Oct 17, 2018 07:16
[2018-10-17] MEDS ORDERED: KETOROLAC 30 MG/ML VIAL. IV ONE (08:45)
[2018-10-17 08:49] LABS: BILIRUBIN,URINE NEGATIVE (NEG); CLARITY,URINE CLEAR; COLOR,URINE YELLOW; NITRITE,URINE NEGATIVE (NEG); PH,URINE 6.5; PROTEIN,URINE NEGATIVE (NEG-TRACE); UROBILINOGEN,URINE 0.2 mg/dL (0.2 mg/dL)
[2018-10-17 08:53] LABS: BARBITURATES NEG (NEG); BENZODIAZEPINES POS (NEG); CANNABINOIDS POS (NEG); COCAINE NEG (NEG); METHADONE NEG (NEG); OPIATES NEG (NEG); PHENCYCLIDINE NEG (NEG)
[2018-10-17 08:58] LABS: BACTERIA,URINE 0 /HPF (0-FEW); RBC,URINE 0 /HPF (0-2); SQUAMOUS EPITHELIAL CELL,UR FEW /LPF; WBC,URINE 0 /HPF (0-4)
--- NOTE | 2018-10-17 08:58 | RAD ---
CT of the abdomen and pelvis with contrast 10/17/2018 8:49 AM Indication: Abdominal pain, acute. Comparison study: CT of the abdomen and pelvis December 28, 2014 Technique: Multidetector CT imaging of the abdomen and pelvis was performed following the administration of IV contrast. Findings: Minimal atelectasis appears to be present lung bases. The liver is grossly unremarkable. There is cholelithiasis. Possible gallbladder wall thickening or trace pericholecystic fluid may be present, best appreciated on coronal views. Pancreas is unremarkable. Spleen is within normal limits. Renal cortical defects are seen in the left possibly representing prior infarcts or scarring. Mild distention of the renal collecting systems seen bilaterally. The bladder is distended. Findings may be physiologic. There is no evidence of bowel obstruction. No acute inflammatory changes involving the bowel are identified. Increased stool appears to be present throughout the colon. Correlate with clinical evidence of constipation. The appendix is not visualized. Correlate with surgical history. Hysterectomy noted. No significant free fluid is seen in the pelvis. No pneumoperitoneum is identified. IMPRESSION: 1. Cholelithiasis possible gallbladder wall thickening or trace pericholecystic fluid. Acute calculus cholecystitis not excluded. Ultrasound evaluation recommended 2. Increased stool throughout the colon. Correlate with evidence of constipation. 3. Attention of the bladder and mild distention of the renal collecting systems. Findings felt to most likely be physiologic. Post void evaluation via ultrasound could be performed for confirmation CT DOSING PQRS STATEMENT: One or more of the following individualized dose reduction techniques were utilized for this examination: 1. Automated exposure control 2. Adjustment of the mA and/or kV according to patient size 3. Use of iterative reconstruction technique Electronically signed by: Evgeny Sarmiento MD (10/17/2018 8:55 AM) [facility]
[2018-10-17 09:00] LABS: AMPHETAMINE/METHAMPHETAMINE NEG (NEG)
--- NOTE | 2018-10-17 10:49 | PDOC2 ---
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 2 days ago developed upper abdominal pain with nausea. This pain worsened, she became increasingly ill and weak Past Medical History Cardiovascular: CAD CENTRAL NERVOUS SYSTEM: Seizure, Other (AGUIRRE) Psych: Anxiety, Depression Past Surgical History Past Surgical History: Hysterectomy Family History Family History: Other (noncontributory to current illness ) Social History <1 pack per day ALCOHOL: none Drugs: Marijuana Lives: with Family Current Problem List Problem List Problems Medical Problems: (1) Acute pancreatitis Status: Acute (2) Anxiety Status: Acute (3) Cholelithiasis Status: Acute (4) Marijuana abuse Status: Acute (5) Tobacco abuse Status: Acute (6) Tobacco abuse counseling Status: Acute Current Medications Current Medications Current Medications Sodium Chloride 1,000 ml @ 1,000 mls/hr Q1H IV Last administered on 10/17/18at 06:33; Start 10/17/18 at 06:30; Stop 10/17/18 at 07:29; Status DC Ondansetron HCl (Zofran) 4 mg 1X ONCE IV Last administered on 10/17/18at 06:34; Start 10/17/18 at 06:30; Stop 10/17/18 at 06:31; Status DC Iohexol (Omnipaque 300 Mg/ml) 75 ml 1X ONCE IV Last administered on 10/17/18at 06:45; Start 10/17/18 at 06:45; Stop 10/17/18 at 06:46; Status DC Iohexol (Omnipaque 240 Mg/ml) 50 ml 1X ONCE PO Last administered on 10/17/18at 06:45; Start 10/17/18 at 06:45; Stop 10/17/18 at 06:46; Status DC Info (CONTRAST GIVEN -- Rx MONITORING) 1 each PRN DAILY PRN MC SEE COMMENTS; Start 10/17/18 at 06:45; Stop 10/19/18 at 06:44 Fentanyl Citrate (Fentanyl 2ml Vial) 50 mcg 1X ONCE IV Last administered on 10/17/18at 07:18; Start 10/17/18 at 07:15; Stop 10/17/18 at 07:16; Status DC Ketorolac Tromethamine (Toradol 30mg Vial) 30 mg 1X ONCE IV Last administered on 10/17/18at 08:46; Start 10/17/18 at 08:45; Stop 10/17/18 at 08:46; Status DC Sodium Chloride 1,000 ml @ 150 mls/hr Q6H40M IV ; Start 10/17/18 at 09:53; Stop 10/18/18 at 09:52 Active Scripts Active Promethazine Hcl 25 Mg Tablet 1 Tab PO PRN Q6HRS Benadryl (Diphenhydramine Hcl) 25 Mg Capsule 1 Cap PO PRN Q8HRS PRN Zofran Odt (Ondansetron) 4 Mg Tab.rapdis 1 Tab SL Q8HRS Fioricet 50-300-40 Mg Capsule (Butalb/Acetaminophen/Caffeine) 1 Each Capsule 1 Each PO PRN Q4HRS PRN Reported Cymbalta (Duloxetine Hcl) 60 Mg Capsule.dr 90 Mg PO HS Xanax (Alprazolam) 0.25 Mg Tablet 1 Mg PO PRN TID PRN Allergies Allergies: Coded Allergies: strawberry (Verified Allergy, Severe, throat swelling, hives, 10/26/16) Penicillins (Verified Allergy, Intermediate, rash, 10/26/16) amoxicillin (Verified Allergy, Intermediate, rash, 10/26/16) ROS General: YES: Chills, Other (+ fevers ) PSYCHOLOGICAL ROS: YES: Anxiety, Depression Eyes: No Blurry vision, No Double vision Hematological and Lymphatic: No: Bleeding Problems, Blood Clots Respiratory: No: Cough, Shortness of breath Cardiovascular: No Chest Pain, No Palpitations Gastrointestinal: Yes Other (see hpi) Genitourinary: No Dysuria, No Hematuria Musculoskeletal: No Joint Pain, No Muscle Pain Neurological: Yes Headaches; No Confusion Skin: No Pruritus, No Rash Physical Exam General: Alert, Oriented X3, Cooperative, No acute distress HEENT: PERRLA, Mucous membr. moist/pink Lungs: Clear to auscultation, Normal air movement Heart: Regular rate, Normal S1, Normal S2, No murmurs Abdomen: Soft, Other (moderate TTP epigastric, ND) Extremities: No clubbing, No cyanosis Skin: No rashes, No breakdown Neuro: Normal gait, Normal speech Psych/Mental Status: Mental status NL, Mood NL MUSCULOSKELETAL: No deformity, No swelling Vitals VITALS Vital Signs Date Time Temp Pulse Resp B/P (MAP) Pulse Ox O2 Delivery O2 Flow Rate FiO2 10/17/18 10:04 60 16 85/60 (68) 97 10/17/18 09:30 91.0 10/17/18 08:30 Room Air 10/17/18 06:19 97.9 97.9 Labs Labs Laboratory Tests Test 10/17/18 06:30 10/17/18 06:50 10/17/18 08:37 White Blood Count 11.7 x10^3/uL (4.0-11.0) Red Blood Count 4.72 x10^6/uL (3.50-5.40) Hemoglobin 13.9 g/dL (12.0-15.5) Hematocrit 41.5 % (36.0-47.0) Mean Corpuscular Volume 88 fL (79-100) Mean Corpuscular Hemoglobin 29 pg (25-35) Mean Corpuscular Hemoglobin Concent 33 g/dL (31-37) Red Cell Distribution Width 14.0 % (11.5-14.5) Platelet Count 241 x10^3/uL (140-400) Neutrophils (%) (Auto) 67 % (31-73) Lymphocytes (%) (Auto) 21 % (24-48) Monocytes (%) (Auto) 9 % (0-9) Eosinophils (%) (Auto) 3 % (0-3) Basophils (%) (Auto) 1 % (0-3) Neutrophils # (Auto) 7.9 x10^3uL (1.8-7.7) Lymphocytes # (Auto) 2.4 x10^3/uL (1.0-4.8) Monocytes # (Auto) 1.0 x10^3/uL (0.0-1.1) Eosinophils # (Auto) 0.3 x10^3/uL (0.0-0.7) Basophils # (Auto) 0.1 x10^3/uL (0.0-0.2) Sodium Level 139 mmol/L (136-145) Potassium Level 3.9 mmol/L (3.5-5.1) Chloride Level 102 mmol/L (98-107) Carbon Dioxide Level 27 mmol/L (21-32) Anion Gap 10 (6-14) Blood Urea Nitrogen 15 mg/dL (7-20) Creatinine 0.7 mg/dL (0.6-1.0) Estimated GFR (Cockcroft-Gault) 85.1 BUN/Creatinine Ratio 21 (6-20) Glucose Level 122 mg/dL (70-99) Lactic Acid Level 1.4 mmol/L (0.4-2.0) Calcium Level 9.2 mg/dL (8.5-10.1) Total Bilirubin 0.3 mg/dL (0.2-1.0) Aspartate Amino Transf (AST/SGOT) 17 U/L (15-37) Alanine Aminotransferase (ALT/SGPT) 27 U/L (14-59) Alkaline Phosphatase 93 U/L (46-116) Total Protein 7.1 g/dL (6.4-8.2) Albumin 3.1 g/dL (3.4-5.0) Albumin/Globulin Ratio 0.8 (1.0-1.7) Lipase 839 U/L (73-393) Stool Occult Blood Positive (NEG) Urine Collection Type Unknown Urine Color Yellow Urine Clarity Clear Urine pH 6.5 Urine Specific [place] <=1.005 Urine Protein Negative mg/dL (NEG-TRACE) Urine Glucose (UA) Negative mg/dL (NEG) Urine Ketones (Stick) Negative mg/dL (NEG) Urine Blood Negative (NEG) Urine Nitrite Negative (NEG) Urine Bilirubin Negative (NEG) Urine Urobilinogen Dipstick 0.2 mg/dL (0.2 mg/dL) Urine Leukocyte Esterase Negative (NEG) Urine RBC 0 /HPF (0-2) Urine WBC 0 /HPF (0-4) Urine Squamous Epithelial Cells Few /LPF Urine Bacteria 0 /HPF (0-FEW) Urine Opiates Screen Neg (NEG) Urine Methadone Screen Neg (NEG) Urine Barbiturates Neg (NEG) Urine Phencyclidine Screen Neg (NEG) Urine Amphetamine/Methamphetamine Neg (NEG) Urine Benzodiazepines Screen Pos (NEG) Urine Cocaine Screen Neg (NEG) Urine Cannabinoids Screen Pos (NEG) Urine Ethyl Alcohol Neg (NEG) Laboratory Tests Test 10/17/18 06:30 10/17/18 06:50 10/17/18 08:37 White Blood Count 11.7 x10^3/uL (4.0-11.0) Red Blood Count 4.72 x10^6/uL (3.50-5.40) Hemoglobin 13.9 g/dL (12.0-15.5) Hematocrit 41.5 % (36.0-47.0) Mean Corpuscular Volume 88 fL (79-100) Mean Corpuscular Hemoglobin 29 pg (25-35) Mean Corpuscular Hemoglobin Concent 33 g/dL (31-37) Red Cell Distribution Width 14.0 % (11.5-14.5) Platelet Count 241 x10^3/uL (140-400) Neutrophils (%) (Auto) 67 % (31-73) Lymphocytes (%) (Auto) 21 % (24-48) Monocytes (%) (Auto) 9 % (0-9) Eosinophils (%) (Auto) 3 % (0-3) Basophils (%) (Auto) 1 % (0-3) Neutrophils # (Auto) 7.9 x10^3uL (1.8-7.7) Lymphocytes # (Auto) 2.4 x10^3/uL (1.0-4.8) Monocytes # (Auto) 1.0 x10^3/uL (0.0-1.1) Eosinophils # (Auto) 0.3 x10^3/uL (0.0-0.7) Basophils # (Auto) 0.1 x10^3/uL (0.0-0.2) Sodium Level 139 mmol/L (136-145) Potassium Level 3.9 mmol/L (3.5-5.1) Chloride Level 102 mmol/L (98-107) Carbon Dioxide Level 27 mmol/L (21-32) Anion Gap 10 (6-14) Blood Urea Nitrogen 15 mg/dL (7-20) Creatinine 0.7 mg/dL (0.6-1.0) Estimated GFR (Cockcroft-Gault) 85.1 BUN/Creatinine Ratio 21 (6-20) Glucose Level 122 mg/dL (70-99) Lactic Acid Level 1.4 mmol/L (0.4-2.0) Calcium Level 9.2 mg/dL (8.5-10.1) Total Bilirubin 0.3 mg/dL (0.2-1.0) Aspartate Amino Transf (AST/SGOT) 17 U/L (15-37) Alanine Aminotransferase (ALT/SGPT) 27 U/L (14-59) Alkaline Phosphatase 93 U/L (46-116) Total Protein 7.1 g/dL (6.4-8.2) Albumin 3.1 g/dL (3.4-5.0) Albumin/Globulin Ratio 0.8 (1.0-1.7) Lipase 839 U/L (73-393) Stool Occult Blood Positive (NEG) Urine Collection Type Unknown Urine Color Yellow Urine Clarity Clear Urine pH 6.5 Urine Specific [place] <=1.005 Urine Protein Negative mg/dL (NEG-TRACE) Urine Glucose (UA) Negative mg/dL (NEG) Urine Ketones (Stick) Negative mg/dL (NEG) Urine Blood Negative (NEG) Urine Nitrite Negative (NEG) Urine Bilirubin Negative (NEG) Urine Urobilinogen Dipstick 0.2 mg/dL (0.2 mg/dL) Urine Leukocyte Esterase Negative (NEG) Urine RBC 0 /HPF (0-2) Urine WBC 0 /HPF (0-4) Urine Squamous Epithelial Cells Few /LPF Urine Bacteria 0 /HPF (0-FEW) Urine Opiates Screen Neg (NEG) Urine Methadone Screen Neg (NEG) Urine Barbiturates Neg (NEG) Urine Phencyclidine Screen Neg (NEG) Urine Amphetamine/Methamphetamine Neg (NEG) Urine Benzodiazepines Screen Pos (NEG) Urine Cocaine Screen Neg (NEG) Urine Cannabinoids Screen Pos (NEG) Urine Ethyl Alcohol Neg (NEG) Assessment/Plan Assessment/Plan gs pancreatitis diarrhea, + occult stool, with recent diarrhea(short lived), pt also recently taken abx for UTI bowel rest, hydration will ask GI to comment on diarrhea, + occult stool will likely need lap tato once acute process resolved SUJATHA ROMAN MD 10/17/18 1703: CONSULT Assessment/Plan Assessment/Plan sleeping soundly I did not wake her agree with above will follow exams, labs will need l/c at some point Thanks for consult [facility] [employer] 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
[2018-10-17] MEDS ORDERED: ALBU2.5V8 INH (11:21)
[2018-10-17 11:30] VITALS: BP 121/78
--- NOTE | 2018-10-17 11:30 | PDOC2 ---
GI CONSULT Reason For Consult: +occult stool, diarrhea, pancreatitis HPI: HPI: 63 y/o female admitted through ER - currently drowsy, falls asleep after every question I ask. Was given Fentanyl in ER. Apparently ill w/ n/v and diarrhea x 10 days. Her was also ill w/ diarrhea but improved. She also took Bactrim recently for UTI. Associated w/ upper abd discomfort - tells me worse "when throwing up." Hasn't been able to eat much. Stools "twenty times a day" - says watery. Admits to some heartburn since symptoms began - unclear if this is chronic but has been taking ranitidine QD. No dysphagia. No hematemesis, hematochezia, or melena. Denies chronic diarrhea or constipation. Typical bowel pattern is 1 stool QOD. Assumes weight loss during illness. Unclear if had previous EGD. Reports normal colonoscopy ~3 years ago "on [address] Denies PUD, GB, liver, or pancreas history. Takes Naprosyn at home. PMH: PMH: TIA, pneumonia, migraines, anxiety, depression hysterectomy, bladder suspension, ?appendectomy, tonsillectomy, ?cardiac cath FH: Family History: Other (unable to obtain) Social History: Smoke: <1 pack per day ALCOHOL: rare Drugs: Marijuana ROS: GEN: Denies fevers, chills, sweats HEENT: Denies blurred vision, sore throat CV: Denies chest pain RESP: Denies shortness of air, cough GI: Per HPI : Denies hematuria, dysuria ENDO: ?weight loss NEURO: Denies confusion, dizziness MSK: Denies weakness, joint pain/swelling SKIN: Denies jaundice, pruritus Vitals: Vitals: Vital Signs Date Time Temp Pulse Resp B/P (MAP) Pulse Ox O2 Delivery O2 Flow Rate FiO2 10/17/18 10:04 60 16 85/60 (68) 97 10/17/18 09:30 91.0 10/17/18 08:30 Room Air 10/17/18 06:19 97.9 97.9 Labs: Labs: Laboratory Tests Test 10/17/18 06:30 10/17/18 06:50 10/17/18 08:37 White Blood Count 11.7 x10^3/uL (4.0-11.0) Red Blood Count 4.72 x10^6/uL (3.50-5.40) Hemoglobin 13.9 g/dL (12.0-15.5) Hematocrit 41.5 % (36.0-47.0) Mean Corpuscular Volume 88 fL (79-100) Mean Corpuscular Hemoglobin 29 pg (25-35) Mean Corpuscular Hemoglobin Concent 33 g/dL (31-37) Red Cell Distribution Width 14.0 % (11.5-14.5) Platelet Count 241 x10^3/uL (140-400) Neutrophils (%) (Auto) 67 % (31-73) Lymphocytes (%) (Auto) 21 % (24-48) Monocytes (%) (Auto) 9 % (0-9) Eosinophils (%) (Auto) 3 % (0-3) Basophils (%) (Auto) 1 % (0-3) Neutrophils # (Auto) 7.9 x10^3uL (1.8-7.7) Lymphocytes # (Auto) 2.4 x10^3/uL (1.0-4.8) Monocytes # (Auto) 1.0 x10^3/uL (0.0-1.1) Eosinophils # (Auto) 0.3 x10^3/uL (0.0-0.7) Basophils # (Auto) 0.1 x10^3/uL (0.0-0.2) Sodium Level 139 mmol/L (136-145) Potassium Level 3.9 mmol/L (3.5-5.1) Chloride Level 102 mmol/L (98-107) Carbon Dioxide Level 27 mmol/L (21-32) Anion Gap 10 (6-14) Blood Urea Nitrogen 15 mg/dL (7-20) Creatinine 0.7 mg/dL (0.6-1.0) Estimated GFR (Cockcroft-Gault) 85.1 BUN/Creatinine Ratio 21 (6-20) Glucose Level 122 mg/dL (70-99) Lactic Acid Level 1.4 mmol/L (0.4-2.0) Calcium Level 9.2 mg/dL (8.5-10.1) Total Bilirubin 0.3 mg/dL (0.2-1.0) Aspartate Amino Transf (AST/SGOT) 17 U/L (15-37) Alanine Aminotransferase (ALT/SGPT) 27 U/L (14-59) Alkaline Phosphatase 93 U/L (46-116) Total Protein 7.1 g/dL (6.4-8.2) Albumin 3.1 g/dL (3.4-5.0) Albumin/Globulin Ratio 0.8 (1.0-1.7) Lipase 839 U/L (73-393) Stool Occult Blood Positive (NEG) Urine Collection Type Unknown Urine Color Yellow Urine Clarity Clear Urine pH 6.5 Urine Specific [place] <=1.005 Urine Protein Negative mg/dL (NEG-TRACE) Urine Glucose (UA) Negative mg/dL (NEG) Urine Ketones (Stick) Negative mg/dL (NEG) Urine Blood Negative (NEG) Urine Nitrite Negative (NEG) Urine Bilirubin Negative (NEG) Urine Urobilinogen Dipstick 0.2 mg/dL (0.2 mg/dL) Urine Leukocyte Esterase Negative (NEG) Urine RBC 0 /HPF (0-2) Urine WBC 0 /HPF (0-4) Urine Squamous Epithelial Cells Few /LPF Urine Bacteria 0 /HPF (0-FEW) Urine Opiates Screen Neg (NEG) Urine Methadone Screen Neg (NEG) Urine Barbiturates Neg (NEG) Urine Phencyclidine Screen Neg (NEG) Urine Amphetamine/Methamphetamine Neg (NEG) Urine Benzodiazepines Screen Pos (NEG) Urine Cocaine Screen Neg (NEG) Urine Cannabinoids Screen Pos (NEG) Urine Ethyl Alcohol Neg (NEG) Allergies: Coded Allergies: strawberry (Verified Allergy, Severe, throat swelling, hives, 10/26/16) Penicillins (Verified Allergy, Intermediate, rash, 10/26/16) amoxicillin (Verified Allergy, Intermediate, rash, 10/26/16) Medications: Current Medications Medications (Trade) Dose Ordered Sig/Otf Route PRN Reason Start Time Stop Time Status Last Admin Dose Admin Sodium Chloride 1,000 ml @ 1,000 mls/hr Q1H IV 10/17/18 06:30 10/17/18 07:29 DC 10/17/18 06:33 Ondansetron HCl (Zofran) 4 mg 1X ONCE IV 10/17/18 06:30 10/17/18 06:31 DC 10/17/18 06:34 Iohexol (Omnipaque 300 Mg/ml) 75 ml 1X ONCE IV 10/17/18 06:45 10/17/18 06:46 DC 10/17/18 06:45 Iohexol (Omnipaque 240 Mg/ml) 50 ml 1X ONCE PO 10/17/18 06:45 10/17/18 06:46 DC 10/17/18 06:45 Fentanyl Citrate (Fentanyl 2ml Vial) 50 mcg 1X ONCE IV 10/17/18 07:15 10/17/18 07:16 DC 10/17/18 07:18 Ketorolac Tromethamine (Toradol 30mg Vial) 30 mg 1X ONCE IV 10/17/18 08:45 10/17/18 08:46 DC 10/17/18 08:46 Imaging: Imaging: CT A/P w/ oral and IV contrast 10/17/18 Findings: Minimal atelectasis appears to be present lung bases. The liver is grossly unremarkable. There is cholelithiasis. Possible gallbladder wall thickening or trace pericholecystic fluid may be present, best appreciated on coronal views. Pancreas is unremarkable. Spleen is within normal limits. Renal cortical defects are seen in the left possibly representing prior infarcts or scarring. Mild distention of the renal collecting systems seen bilaterally. The bladder is distended. Findings may be physiologic. There is no evidence of bowel obstruction. No acute inflammatory changes involving the bowel are identified. Increased stool appears to be present throughout the colon. Correlate with clinical evidence of constipation. The appendix is not visualized. Correlate with surgical history. Hysterectomy noted. No significant free fluid is seen in the pelvis. No pneumoperitoneum is identified. IMPRESSION: 1. Cholelithiasis possible gallbladder wall thickening or trace pericholecystic fluid. Acute calculus cholecystitis not excluded. Ultrasound evaluation recommended 2. Increased stool throughout the colon. Correlate with evidence of constipation. 3. Attention of the bladder and mild distention of the renal collecting systems. Findings felt to most likely be physiologic. Post void evaluation via ultrasound could be performed for confirmation. PE: GEN: NAD HEENT: Atraumatic - keeps eyes closed for the most part LUNGS: CTAB HEART: RRR ABD: NABS, S/ND, vague epigastric discomfort track to RUQ/right periumbilical/ also some RLQ EXTREMITY: No edema SKIN: No rashes, no jaundice NEURO/PSYCH: A & O 3 - really drowsy A/P: A/P: N/v, diarrhea, upper abd pain - interestingly, CT notes increased stool throughout the colon Leukocytosis +fecal occult - checked in ER but no reports of bleeding, Hgb and BUN are WNL Mildly elevated lipase - unremarkable pancreas on CT Cholelithiasis, ?GB wall thickening - normal LFTs Heartburn - unclear chronicity or previous eval, has been taking H2 eli CRC screen - reportedly normal ~3 years ago NSAID use, recent atbx use +marijuana -- She's really drowsy - hopefully able to obtain better history later. C Diff already ordered, add stool culture. Will review finding of increased stool on CT w/ Dr. Galvan. Add PPI - IV for now, can change to PO as able. Checked w/ our office re: past scopes - not in our system. Okay to try clears per GI - defer to surgery. JOHN JANG Oct 17, 2018 11:30
[2018-10-17] MEDS: IV NORMAL SALINE 1000ML BAG 1,000 ML IV SCH ×3 (12:07→21:44)
[2018-10-17 15:00] VITALS: BP 117/73
[2018-10-17] MEDS: PANTOPRAZOLE IV PUSH 40 MG VIAL. IVP SCH (16:18)
[2018-10-17 19:00] VITALS: BP 114/74
--- NOTE | 2018-10-17 19:05 | NUR ---
Pt complain of pain. MD notified. Orders received. Will continue to monitor.
[2018-10-17] MEDS: fentaNYL PF VIAL 100 MCG/2 ML VIAL IV PRN (19:34)
[2018-10-17] MEDS ORDERED: ALBUTEROL SULFATE 2.5 MG/3 ML NEBU. NEB SCH (20:00)
[2018-10-17 23:00] VITALS: BP 124/84
[2018-10-18 03:00] VITALS: BP 117/84
[2018-10-18] MEDS: IV NORMAL SALINE 1000ML BAG 1,000 ML IV SCH (04:31)
[2018-10-18] MEDS: fentaNYL PF VIAL 100 MCG/2 ML VIAL IV PRN ×3 (05:36→20:17)
[2018-10-18] MEDS: PANTOPRAZOLE IV PUSH 40 MG VIAL. IVP SCH ×2 (05:36→17:00)
[2018-10-18 06:36] LABS: HEMATOCRIT 36.9 % (36.0-47.0); RED BLOOD COUNT 4.13 x10^6/uL (3.50-5.40); RED CELL DISTRIBUTION WIDTH 14.6 % (11.5-14.5); WHITE BLOOD COUNT 8.4 x10^3/uL (4.0-11.0)
[2018-10-18 06:57] LABS: ALBUMIN 2.4 g/dL (3.4-5.0); ALBUMIN/GLOBULIN RATIO 0.7 (1.0-1.7); CALCIUM 7.8 mg/dL (8.5-10.1); CREATININE 0.6 mg/dL (0.6-1.0); GFR 101.6; POTASSIUM 4.1 mmol/L (3.5-5.1); TOTAL BILIRUBIN 0.3 mg/dL (0.2-1.0); TOTAL PROTEIN 5.7 g/dL (6.4-8.2)
[2018-10-18 07:00] VITALS: BP 141/82
--- NOTE | 2018-10-18 08:40 | NUR ---
SW following for discharge planning. Discussed with RN, pt is from home with . RN advised no SW needs at this time. SW will continue to follow.
--- NOTE | 2018-10-18 08:51 | PDOC ---
Provider Note Provider Note [id number] SUSSY POWELL MD Oct 18, 2018 08:51
[2018-10-18] MEDS ORDERED: IPRATRPIUM/ALBUTEROL 0.5/2.5MG 3 ML NEBU. NEB SCH (09:00)
[2018-10-18] MEDS: methylPREDNISolone SOD SUCC PF 40 MG/ML VIAL. IV SCH ×2 (09:11→20:16)
[2018-10-18] MEDS: POTASSIUM CL 20MEQ D5-0.45NACL 1,000 ML IV SCH ×2 (09:12→20:23)
--- NOTE | 2018-10-18 09:24 | HP ---
ADMIT DATE: 10/17/2018 CHIEF COMPLAINT: Diarrhea and upper abdominal pain. HISTORY OF PRESENT ILLNESS: A 63-year-old white female with COPD and chronic tobacco use, stated she has had a nonbloody diarrhea for about the last week. Then, she did develop some upper abdominal pain, radiating through to the back on the right side without emesis, fever, melena, hematochezia or other symptoms. CT scan showed evidence of gallstones with mild inflammation of the gallbladder lining and she had a high lipase consistent with pancreatitis. Liver function tests and bilirubin are normal. Stool has been tested and is negative for C. diff and she has had less diarrhea up on this unit, although she continues to have abdominal pain. PAST MEDICAL HISTORY: Surgically, she has had hysterectomy. She thought her gallbladder was out, but was not correct. ALLERGIES: PENICILLIN. MEDICATIONS: Include Cymbalta, Xanax, and hydroxyzine for itching. SOCIAL HISTORY: Continued tobacco user, smoked most of her adult life. , not employed. Nondrinker. FAMILY HISTORY: Unremarkable. REVIEW OF SYSTEMS: No other complaints. OBJECTIVE: ENT: Anicteric. TMs clear. Mouth is dry. Dentures in place. NECK: Revealed no bruits, nodes or thyroid enlargement. LUNGS: Coarse inspiratory crackles and expiratory wheezes. No tachypnea is noted. No dullness. CARDIOVASCULAR: Regular rate. Heart tones of 70-80. No murmurs heard. ABDOMEN: Tender with mild guarding in the right upper quadrant and epigastrium. Lower abdominal exam was benign. Bowel sounds are minimal. BACK: Nontender to CVA percussion. EXTREMITIES: Reduced pedal pulses. No edema. No joint or skin lesions, 2+ clubbing is noted. NEUROLOGIC: Physiologic. Affect is flat. She is oriented x 4. ASSESSMENT: 1. Ongoing diarrhea with heme-positive stool. Clostridium difficile was negative, etiology likely viral, but cannot rule out bacterial at this point. It seems to be improved by n.p.o. status. 2. Upper abdominal pain, elevated lipase consistent with pancreatitis and she does have gallstones and I suspect cholecystitis as well. 3. Exacerbation of ongoing chronic obstructive pulmonary disease with wheezing and cloudy sputum production. PLAN: Start pulmonary toilet with DuoNeb and IV Solu-Medrol. We will do a chest x-ray and get a sputum culture. May need to use antibiotics at this point, we will wait and assess response to treatment. Needs to maximize pulmonary status before she can have the laparoscopic cholecystectomy that she does need at some point. SUSSY POWELL MD DR: NANETTE/johnson JOB#: [id number] / [id number]
--- NOTE | 2018-10-18 09:26 | PDOC ---
SURGICAL PROGRESS NOTE Subjective still having epigastric pain, radiating to her back loose stools Vital Signs Vital Signs Date Time Temp Pulse Resp B/P (MAP) Pulse Ox O2 Delivery O2 Flow Rate FiO2 10/18/18 07:15 Room Air 10/18/18 07:00 97.9 64 16 141/82 (101) 92 97.9 10/17/18 09:30 91.0 I&O Intake and Output 10/18/18 07:00 Intake Total 1000 ml Balance 1000 ml Intake IV Total 1000 ml # Voids 3 # Bowel Movements 2 General: Alert, Oriented X3, Cooperative, No acute distress Abdomen: Soft, Other (moderate epigastric TTP) Labs Laboratory Tests Test 10/17/18 06:30 10/17/18 06:50 10/17/18 08:37 10/18/18 05:27 White Blood Count 11.7 x10^3/uL (4.0-11.0) 8.4 x10^3/uL (4.0-11.0) Red Blood Count 4.72 x10^6/uL (3.50-5.40) 4.13 x10^6/uL (3.50-5.40) Hemoglobin 13.9 g/dL (12.0-15.5) 12.0 g/dL (12.0-15.5) Hematocrit 41.5 % (36.0-47.0) 36.9 % (36.0-47.0) Mean Corpuscular Volume 88 fL (79-100) 89 fL (79-100) Mean Corpuscular Hemoglobin 29 pg (25-35) 29 pg (25-35) Mean Corpuscular Hemoglobin Concent 33 g/dL (31-37) 33 g/dL (31-37) Red Cell Distribution Width 14.0 % (11.5-14.5) 14.6 % (11.5-14.5) Platelet Count 241 x10^3/uL (140-400) 209 x10^3/uL (140-400) Neutrophils (%) (Auto) 67 % (31-73) Lymphocytes (%) (Auto) 21 % (24-48) Monocytes (%) (Auto) 9 % (0-9) Eosinophils (%) (Auto) 3 % (0-3) Basophils (%) (Auto) 1 % (0-3) Neutrophils # (Auto) 7.9 x10^3uL (1.8-7.7) Lymphocytes # (Auto) 2.4 x10^3/uL (1.0-4.8) Monocytes # (Auto) 1.0 x10^3/uL (0.0-1.1) Eosinophils # (Auto) 0.3 x10^3/uL (0.0-0.7) Basophils # (Auto) 0.1 x10^3/uL (0.0-0.2) Sodium Level 139 mmol/L (136-145) 144 mmol/L (136-145) Potassium Level 3.9 mmol/L (3.5-5.1) 4.1 mmol/L (3.5-5.1) Chloride Level 102 mmol/L (98-107) 109 mmol/L (98-107) Carbon Dioxide Level 27 mmol/L (21-32) 24 mmol/L (21-32) Anion Gap 10 (6-14) 11 (6-14) Blood Urea Nitrogen 15 mg/dL (7-20) 10 mg/dL (7-20) Creatinine 0.7 mg/dL (0.6-1.0) 0.6 mg/dL (0.6-1.0) Estimated GFR (Cockcroft-Gault) 85.1 101.6 BUN/Creatinine Ratio 21 (6-20) 17 (6-20) Glucose Level 122 mg/dL (70-99) 99 mg/dL (70-99) Lactic Acid Level 1.4 mmol/L (0.4-2.0) Calcium Level 9.2 mg/dL (8.5-10.1) 7.8 mg/dL (8.5-10.1) Total Bilirubin 0.3 mg/dL (0.2-1.0) 0.3 mg/dL (0.2-1.0) Aspartate Amino Transf (AST/SGOT) 17 U/L (15-37) 18 U/L (15-37) Alanine Aminotransferase (ALT/SGPT) 27 U/L (14-59) 23 U/L (14-59) Alkaline Phosphatase 93 U/L (46-116) 68 U/L (46-116) Total Protein 7.1 g/dL (6.4-8.2) 5.7 g/dL (6.4-8.2) Albumin 3.1 g/dL (3.4-5.0) 2.4 g/dL (3.4-5.0) Albumin/Globulin Ratio 0.8 (1.0-1.7) 0.7 (1.0-1.7) Lipase 839 U/L (73-393) 151 U/L (73-393) Stool Occult Blood Positive (NEG) Clostridium difficile Toxin B Gene Negative (Negative) Urine Collection Type Unknown Urine Color Yellow Urine Clarity Clear Urine pH 6.5 Urine Specific [place] <=1.005 Urine Protein Negative mg/dL (NEG-TRACE) Urine Glucose (UA) Negative mg/dL (NEG) Urine Ketones (Stick) Negative mg/dL (NEG) Urine Blood Negative (NEG) Urine Nitrite Negative (NEG) Urine Bilirubin Negative (NEG) Urine Urobilinogen Dipstick 0.2 mg/dL (0.2 mg/dL) Urine Leukocyte Esterase Negative (NEG) Urine RBC 0 /HPF (0-2) Urine WBC 0 /HPF (0-4) Urine Squamous Epithelial Cells Few /LPF Urine Bacteria 0 /HPF (0-FEW) Urine Opiates Screen Neg (NEG) Urine Methadone Screen Neg (NEG) Urine Barbiturates Neg (NEG) Urine Phencyclidine Screen Neg (NEG) Urine Amphetamine/Methamphetamine Neg (NEG) Urine Benzodiazepines Screen Pos (NEG) Urine Cocaine Screen Neg (NEG) Urine Cannabinoids Screen Pos (NEG) Urine Ethyl Alcohol Neg (NEG) Laboratory Tests Test 10/18/18 05:27 White Blood Count 8.4 x10^3/uL (4.0-11.0) Red Blood Count 4.13 x10^6/uL (3.50-5.40) Hemoglobin 12.0 g/dL (12.0-15.5) Hematocrit 36.9 % (36.0-47.0) Mean Corpuscular Volume 89 fL (79-100) Mean Corpuscular Hemoglobin 29 pg (25-35) Mean Corpuscular Hemoglobin Concent 33 g/dL (31-37) Red Cell Distribution Width 14.6 % (11.5-14.5) Platelet Count 209 x10^3/uL (140-400) Sodium Level 144 mmol/L (136-145) Potassium Level 4.1 mmol/L (3.5-5.1) Chloride Level 109 mmol/L (98-107) Carbon Dioxide Level 24 mmol/L (21-32) Anion Gap 11 (6-14) Blood Urea Nitrogen 10 mg/dL (7-20) Creatinine 0.6 mg/dL (0.6-1.0) Estimated GFR (Cockcroft-Gault) 101.6 BUN/Creatinine Ratio 17 (6-20) Glucose Level 99 mg/dL (70-99) Calcium Level 7.8 mg/dL (8.5-10.1) Total Bilirubin 0.3 mg/dL (0.2-1.0) Aspartate Amino Transf (AST/SGOT) 18 U/L (15-37) Alanine Aminotransferase (ALT/SGPT) 23 U/L (14-59) Alkaline Phosphatase 68 U/L (46-116) Total Protein 5.7 g/dL (6.4-8.2) Albumin 2.4 g/dL (3.4-5.0) Albumin/Globulin Ratio 0.7 (1.0-1.7) Lipase 151 U/L (73-393) Problem List Problems Medical Problems: (1) Acute pancreatitis Status: Acute (2) Anxiety Status: Acute (3) Cholelithiasis Status: Acute (4) Marijuana abuse Status: Acute (5) Tobacco abuse Status: Acute (6) Tobacco abuse counseling Status: Acute Assessment/Plan supportive measures will review with Dr Brian WALKER following HALEIGH PLASCENCIA APRN Oct 18, 2018 09:26
[2018-10-18] MEDS: IPRATRPIUM/ALBUTEROL 0.5/2.5MG 3 ML NEBU. NEB SCH ×4 (09:30→18:20)
[2018-10-18 11:00] VITALS: BP 114/75
--- NOTE | 2018-10-18 11:06 | PDOC ---
Subjective: Subjective: I said good morning - she said "what do you want" Still not feeling well - feels cold and can't get warm. Has upper abd pain that is constant and worse w/ stooling. Denies pain pain. Tolerating liquids without vomiting. Has had three watery stools today. Still denies bleeding. Objective: Vital Signs: Vital Signs Date Time Temp Pulse Resp B/P (MAP) Pulse Ox O2 Delivery O2 Flow Rate FiO2 10/18/18 07:15 Room Air 10/18/18 07:00 97.9 64 16 141/82 (101) 92 97.9 10/17/18 09:30 91.0 Labs: Laboratory Tests Test 10/18/18 05:27 White Blood Count 8.4 x10^3/uL Red Blood Count 4.13 x10^6/uL Hemoglobin 12.0 g/dL Hematocrit 36.9 % Mean Corpuscular Volume 89 fL Mean Corpuscular Hemoglobin 29 pg Mean Corpuscular Hemoglobin Concent 33 g/dL Red Cell Distribution Width 14.6 % Platelet Count 209 x10^3/uL Sodium Level 144 mmol/L Potassium Level 4.1 mmol/L Chloride Level 109 mmol/L Carbon Dioxide Level 24 mmol/L Anion Gap 11 Blood Urea Nitrogen 10 mg/dL Creatinine 0.6 mg/dL Estimated GFR (Cockcroft-Gault) 101.6 BUN/Creatinine Ratio 17 Glucose Level 99 mg/dL Calcium Level 7.8 mg/dL Total Bilirubin 0.3 mg/dL Aspartate Amino Transf (AST/SGOT) 18 U/L Alanine Aminotransferase (ALT/SGPT) 23 U/L Alkaline Phosphatase 68 U/L Total Protein 5.7 g/dL Albumin 2.4 g/dL Albumin/Globulin Ratio 0.7 Lipase 151 U/L Imaging: CXR 10/18/18 pending PE: GEN: NAD - laying on left side LUNGS: diminished, poor effort HEART: RRR ABD: epigastric discomfort - less so RUQ to RLQ today NEURO/PSYCH: A & O 3 - more awake today A/P: Upper abd pain, diarrhea - C Diff neg., reports normal colonoscopy <5 years ago +fecal occult - no obvious bleeding, Hgb and BUN remain WNL Cholelithiasis, ?cholecystitis, mildly elevated lipase (resolved w/ normal pancreas on CT, LFTs remain WNL) +marijuana -- Continue PPI - can change to PO as able. Stool culture pending. Other per Dr. Galvan. JOHN JANG Oct 18, 2018 11:06
--- NOTE | 2018-10-18 11:13 | RAD ---
EXAM: Chest, 2 views. HISTORY: COPD. COMPARISON: 10/08/2017 FINDINGS: 2 views of the chest are obtained. There is no infiltrate, pleural effusion or pneumothorax. The heart is normal in size. IMPRESSION: No acute pulmonary finding. Electronically signed by: Sharmaine aCt MD (10/18/2018 11:10 AM) [facility]
[2018-10-18 15:00] VITALS: BP 122/69
[2018-10-18 19:00] VITALS: BP 114/60
[2018-10-18] MEDS: ALPRAZolam 0.25 MG TABLET PO PRN (20:17)
[2018-10-18] MEDS: DULoxetine HCL 30 MG CAPSULE.DR PO SCH (20:17)
[2018-10-18] MEDS: hydrOXYzine 10 MG TABLET PO PRN (20:18)
[2018-10-18 23:00] VITALS: BP 117/56
[2018-10-19 03:00] VITALS: BP 109/49
[2018-10-19] MEDS: fentaNYL PF VIAL 100 MCG/2 ML VIAL IV PRN ×4 (03:22→21:06)
[2018-10-19] MEDS: POTASSIUM CL 20MEQ D5-0.45NACL 1,000 ML IV SCH ×2 (06:26→16:23)
[2018-10-19 07:00] VITALS: BP 131/66
[2018-10-19] MEDS: IPRATRPIUM/ALBUTEROL 0.5/2.5MG 3 ML NEBU. NEB SCH ×4 (07:14→19:33)
[2018-10-19] MEDS: PANTOPRAZOLE IV PUSH 40 MG VIAL. IVP SCH (07:34)
--- NOTE | 2018-10-19 08:25 | PDOC ---
Provider Note Provider Note FEELS BETTER, NO MORE DIARRHEA, LESS SPUTUM AND NO DYSPNEA- AFEB, NO WHEEZING- CXR CLEAR - ok for lap tato when surg able, po pred SUSSY POWELL MD Oct 19, 2018 08:25
[2018-10-19] MEDS ORDERED: ACETAMINOPHEN 325 MG TABLET. PO PRN (08:30)
[2018-10-19] MEDS: predniSONE 20 MG TABLET PO SCH (08:50)
--- NOTE | 2018-10-19 10:01 | NUR ---
SW following for discharge planning. Discussed with RN, possibility of surgery. RN advised no SW needs at this time, SW will continue to follow for plan of care and any discharge planning needs.
--- NOTE | 2018-10-19 10:06 | PDOC ---
Subjective: Subjective: Feels much better - pain has improved, tolerating clears, no more diarrhea. Says was told to avoid fatty/friend foods. Objective: Vital Signs: Vital Signs Date Time Temp Pulse Resp B/P (MAP) Pulse Ox O2 Delivery O2 Flow Rate FiO2 10/19/18 08:10 Room Air 10/19/18 07:15 97 10/19/18 07:00 97.9 73 18 131/66 (87) 97.9 PE: GEN: NAD - loks much better LUNGS: CTAB HEART: RRR ABD: epigastric discomfort - better NEURO/PSYCH: A & O 3 A/P: Upper abd pain - better Diarrhea - resolved +fecal occult - no obvious bleeding, not anemic Cholelithiasis, ?cholecystitis Mildly elevated lipase - resolved -- Defer diet to surgery, await recs: re: cholecystectomy. Can pursue outpt 'scopes later on. JOHN JANG Oct 19, 2018 10:06
[2018-10-19 11:00] VITALS: BP 129/76
--- NOTE | 2018-10-19 13:20 | PDOC ---
SURGICAL PROGRESS NOTE Subjective no new complaints diarrhea has stopped Vital Signs Vital Signs Date Time Temp Pulse Resp B/P (MAP) Pulse Ox O2 Delivery O2 Flow Rate FiO2 10/19/18 11:00 97.7 70 18 129/76 (93) 96 Room Air 97.7 I&O Intake and Output 10/19/18 07:00 # Voids 3 PATIENT HAS A AYERS: No General: Alert, No acute distress Abdomen: Soft, No tenderness Labs Laboratory Tests Test 10/18/18 05:27 White Blood Count 8.4 x10^3/uL (4.0-11.0) Red Blood Count 4.13 x10^6/uL (3.50-5.40) Hemoglobin 12.0 g/dL (12.0-15.5) Hematocrit 36.9 % (36.0-47.0) Mean Corpuscular Volume 89 fL (79-100) Mean Corpuscular Hemoglobin 29 pg (25-35) Mean Corpuscular Hemoglobin Concent 33 g/dL (31-37) Red Cell Distribution Width 14.6 % (11.5-14.5) Platelet Count 209 x10^3/uL (140-400) Sodium Level 144 mmol/L (136-145) Potassium Level 4.1 mmol/L (3.5-5.1) Chloride Level 109 mmol/L (98-107) Carbon Dioxide Level 24 mmol/L (21-32) Anion Gap 11 (6-14) Blood Urea Nitrogen 10 mg/dL (7-20) Creatinine 0.6 mg/dL (0.6-1.0) Estimated GFR (Cockcroft-Gault) 101.6 BUN/Creatinine Ratio 17 (6-20) Glucose Level 99 mg/dL (70-99) Calcium Level 7.8 mg/dL (8.5-10.1) Total Bilirubin 0.3 mg/dL (0.2-1.0) Aspartate Amino Transf (AST/SGOT) 18 U/L (15-37) Alanine Aminotransferase (ALT/SGPT) 23 U/L (14-59) Alkaline Phosphatase 68 U/L (46-116) Total Protein 5.7 g/dL (6.4-8.2) Albumin 2.4 g/dL (3.4-5.0) Albumin/Globulin Ratio 0.7 (1.0-1.7) Lipase 151 U/L (73-393) Problem List Problems Medical Problems: (1) Acute pancreatitis Status: Acute (2) Anxiety Status: Acute (3) Cholelithiasis Status: Acute (4) Marijuana abuse Status: Acute (5) Tobacco abuse Status: Acute (6) Tobacco abuse counseling Status: Acute Assessment/Plan gall stone pancreatitis diarrhea, resolved d/w patient and at bedside risks of l/s tato including, but not limited to bleeding, infection, injury to bowel, liver or bile ducts with resultant need for further surgery, possibel open procedure or diarrhea post op she will proceed SUJATHA ROMAN MD Oct 19, 2018 13:20
[2018-10-19 15:00] VITALS: BP 128/69
[2018-10-19 19:00] VITALS: BP 130/60
[2018-10-19] MEDS: DULoxetine HCL 30 MG CAPSULE.DR PO SCH (20:15)
[2018-10-19] MEDS: ALPRAZolam 0.25 MG TABLET PO PRN (20:16)
[2018-10-19] MEDS: hydrOXYzine 10 MG TABLET PO PRN (20:17)
[2018-10-19 23:00] VITALS: BP 135/57
[2018-10-20] VITALS (10 sets, daily range): BP systolic 117–170; BP diastolic 60–78
[2018-10-20] MEDS: ALPRAZolam 0.25 MG TABLET PO PRN (00:04)
[2018-10-20] MEDS: POTASSIUM CL 20MEQ D5-0.45NACL 1,000 ML IV SCH ×2 (02:02→11:00)
[2018-10-20] MEDS: fentaNYL PF VIAL 100 MCG/2 ML VIAL IV PRN ×3 (02:07→11:05)
[2018-10-20] MEDS ORDERED: BUPIVAC MPF-EPI 0.5%-1:200000 30 ML VIAL. ONE (06:43)
[2018-10-20] MEDS ORDERED: IOHEXOL 300 MG/ML 100ML VIAL. ONE (06:44)
[2018-10-20] MEDS ORDERED: PROCHLORPERAZINE 10 MG/2 ML VIAL. IV PRN ×2 (07:00→10:15)
[2018-10-20] MEDS ORDERED: MORPHINE SULFATE 2 MG/ML VIAL. IV PRN ×2 (07:00→10:15)
[2018-10-20] MEDS ORDERED: IV RINGERS,LACTATED 1000ML 1,000 ML IV SCH ×2 (07:00→10:09)
[2018-10-20] MEDS ORDERED: HYDROmorphone 2 MG/ML VIAL IV PRN ×2 (07:00→10:15)
[2018-10-20] MEDS ORDERED: fentaNYL PF VIAL 100 MCG/2 ML VIAL IV PRN ×3 (07:00→10:15)
[2018-10-20] MEDS ORDERED: PANTOPRAZOLE 40 MG TABLET.DR. PO SCH (07:30)
[2018-10-20] MEDS: predniSONE 20 MG TABLET PO SCH (08:00)
[2018-10-20] MEDS: IPRATRPIUM/ALBUTEROL 0.5/2.5MG 3 ML NEBU. NEB SCH ×2 (08:00→10:49)
[2018-10-20] MEDS ORDERED: PROPOFOL 20 ML IV ONE (08:06)
[2018-10-20] MEDS ORDERED: LIDOCAINE 2% PF 5 ML VIAL. ONE (08:06)
[2018-10-20] MEDS ORDERED: DEXAMETHASONE SOD PHOS 20 MG/5 ML VIAL. ONE (08:07)
[2018-10-20] MEDS ORDERED: ONDANSETRON PF 4 MG/2 ML VIAL. ONE (08:07)
[2018-10-20] MEDS ORDERED: ROCURONIUM 50 MG/5 ML VIAL. ONE (08:08)
[2018-10-20] MEDS ORDERED: MIDAZOLAM HCL/PF 2 MG/2 ML VIAL. ONE (08:09)
[2018-10-20] MEDS ORDERED: fentaNYL PF VIAL 100 MCG/2 ML VIAL ONE ×2 (08:09→09:21)
[2018-10-20] MEDS ORDERED: GLUCAGON,HUMAN RECOMBINANT 1 MG/ML VIAL. ONE (08:32)
--- NOTE | 2018-10-20 08:40 | PDOC ---
Provider Note Provider Note pt in surgwery re orlando godwin, will follow SUSSY POWELL MD Oct 20, 2018 08:40
[2018-10-20] MEDS ORDERED: SURGICEL HEMOSTAT 2X14 EACH. ONE (08:42)
[2018-10-20] MEDS ORDERED: SURGICEL HEMOSTAT 4X8 EACH. ONE (08:42)
[2018-10-20] MEDS ORDERED: hydrALAZINE 20 MG/ML VIAL. ONE (09:07)
[2018-10-20] MEDS ORDERED: GLYCOPYRROLATE 1 MG/5 ML VIAL. ONE (09:08)
[2018-10-20] MEDS ORDERED: NEOSTIGMINE METHYLSULFATE 5 MG/5 ML SYRINGE. ONE (09:08)
--- NOTE | 2018-10-20 09:19 | NUR ---
Pt was taken down to surgery center at 0800, for lap cholecystectomy. Pt is stable, alert x4. Will resume care over this pt after she returns.
[2018-10-20] MEDS ORDERED: ESMOLOL 100 MG/10 ML VIAL. IVP ONE (09:25)
--- NOTE | 2018-10-20 09:58 | PDOC ---
Objective: Vital Signs: Vital Signs Date Time Temp Pulse Resp B/P (MAP) Pulse Ox O2 Delivery O2 Flow Rate FiO2 10/20/18 08:05 97.2 55 20 179/83 98 Room Air 97.2 Labs: STOOL CULTURE Final Final report STOOL CULT RES 1 Final Comment No Salmonella or Shigella recovered. CAMPY Preliminary Preliminary report CAMPY RES 1 Preliminary Comment No Campylobacter species isolated. Performed at: DA - [facility] [id number] [facility] [address], [place], [place] [id number] [employer] Pump Servicer: AILYN Nino MD, Phone: [phone] SHIGA TOXIN PENDING Imaging: IOC 10/20/18 pending PE: out for surgery A/P: +fecal occult - no obvious bleeding, Hgb WNL Cholelithiasis w/ mildly elevated lipase, ?cholecystitis -- Cholecystectomy today, will follow. JOHN JANG Oct 20, 2018 09:58
[2018-10-20] MEDS ORDERED: IV 1/2 NORMAL SALINE 1,000 ML IV SCH (10:08)
[2018-10-20] MEDS ORDERED: ENOXAPARIN 40 MG/0.4 ML SYRINGE. SQ SCH (10:15)
[2018-10-20] MEDS ORDERED: 0.9 % SODIUM CHLORIDE 10 ML DISP.SYRIN. IV PRN (10:15)
[2018-10-20] MEDS ORDERED: oxyCODONE/APAP 5/325 1 TAB TABLET PO PRN (10:15)
[2018-10-20] MEDS ORDERED: DEXTROSE 50% 25 GM / 50ML DISP.SYRIN. IV PRN (10:15)
[2018-10-20] MEDS ORDERED: diphenhydrAMINE HCL 25 MG CAPSULE PO PRN (10:15)
[2018-10-20] MEDS ORDERED: LIDOCAINE 1% PF 2 ML VIAL. ID PRN (10:15)
[2018-10-20] MEDS ORDERED: ONDANSETRON PF 4 MG/2 ML VIAL. IV PRN ×2 (10:15)
--- NOTE | 2018-10-20 10:15 | PDOC ---
BRIEF OPERATIVE NOTE Date: Oct 20, 2018 Pre-Op Diagnosis gall stone pancreatitis Post-Op Diagnosis same Procedure Performed l/s cholecystectomy with cholangiograms Surgeon Brian Anesthesia Type: General Blood Loss 10cc IV Fluid 900cc Specimens Obtained GB Findings supple GB, with stones, normal grams Complications none SUJATHA ROMAN MD Oct 20, 2018 10:15
--- NOTE | 2018-10-20 10:15 | RAD ---
Examination: CHOLANGIOGRAM INTRAOPERATIVE History: CHOLANGIOGRAMS IN OR WITH C-ARM, FL TIME =.27 MINUTES 6 IMAGES SAVED. Comparison/Correlation: None Findings: A total of 6 images of intraoperative shuntogram were provided. Fluoroscopy was utilized for 0.27 minutes. Right upper quadrant cholecystectomy clips are present. Contrast is noted within the common bile duct or biliary tree. Contrast is noted within the cystic duct remnant. No extravasation of contrast. No suspicious filling defects or strictures identified. No dilatation. Impression: Cholecystectomy. No extravasation of contrast. No stricture or suspicious filling defect. Electronically signed by: Christian Sands MD (10/20/2018 10:11 AM) [facility]
--- NOTE | 2018-10-20 12:02 | NUR ---
SW following for discharge planning. Discussed with RN, pt had surgery this morning. RN advised no SW needs at this time. SW will continue to follow.
--- NOTE | 2018-10-20 12:46 | OP ---
DATE OF SURGERY: 10/20/2018 PREOPERATIVE DIAGNOSIS: Gallstone pancreatitis. POSTOPERATIVE DIAGNOSIS: Gallstone pancreatitis. PROCEDURE: Laparoscopic cholecystectomy with cholangiogram. SURGEON: Sujatah Roman MD ANESTHESIA: General endotracheal. ESTIMATED BLOOD LOSS: 10. IV FLUID: 900. INDICATIONS: The patient is a 63-year-old admitted with diarrhea and gallstone pancreatitis. Her diarrhea resolved. She is brought for cholecystectomy. OPERATIVE FINDINGS: The liver was generous. Gallbladder was supple with stones visible. Cholangiograms were normal. Visual inspection of the remainder of the abdomen failed to reveal obvious abnormalities. DESCRIPTION OF PROCEDURE: The patient was brought to the operating suite, given a general endotracheal anesthetic and the abdomen prepped and draped in usual sterile fashion. A supraumbilical incision was infiltrated with local anesthetic, incised and a 5 mm Visiport used to safely gain access into the abdominal cavity, taking care to avoid injury to abdominal contents. Pneumoperitoneum established. Camera inserted. Inspection carried out with results as noted above. With the table in reverse Trendelenburg rolled to the left, the epigastric, midclavicular and lateral ports were placed under direct vision. The gallbladder was retracted superolaterally and omental adhesions along the inferior aspect were carefully taken down with blunt and cautery dissection, avoiding injury to the adjacent bowel. The cystic duct and cystic artery were identified. The duct was clipped on the gallbladder side. Cholangiograms were made. These were normal. In light of this, the catheter was removed. The cystic duct was clipped x 3 and divided, taking care to avoid injury or compromise of the common duct. The cystic artery was isolated, clipped and divided and gallbladder freed from the bed with cautery dissection and placed in an EndoCatch bag. No evidence of bile leak seen in the fossa. Hemostasis obtained with cautery and a small piece of Surgicel. Table returned to level. Gallbladder delivered through the epigastric incision. Epigastric incision closed with interrupted 0 Vicryl suture. Intra-abdominal pressure decreased to 6 cm of water. No bleeding from the epigastric closure or from the midclavicular or lateral port sites after their removal. Abdomen decompressed, camera slowly removed, no bleeding seen. Skin incisions closed with subcuticular 4-0 Monocryl. Steri-Strips and sterile dressings applied. The patient awakened from her anesthetic and taken to the recovery room in satisfactory condition. SUJATHA ROMAN MD DR: Russel JOB#: [id number] / [id number]
--- NOTE | 2018-10-20 16:24 | NUR ---
Pt was given discharge instructions, follow up info, new prescriptions and teaching. Pt is stable. Doing labs around nursing station. Alertx4. Pt is requesting to go home. Dr. Torres called, Dr. Reyes called. Pt has surgery today and is considered stable enough to return home. Will follow up within 2 weeks with surgery. All belongings left with pt. Pt left at 1600, escorted by [facility], with family member driving her back home. Iv removed. No tele.
[2018-10-20] MEDS ORDERED: DOCUSATE SODIUM 100 MG CAPSULE. PO SCH (21:00)
--- NOTE | 2018-10-20 22:38 | DS ---
DATE OF DISCHARGE: 10/20/2018 HOSPITAL SUMMARY: A 63-year-old white female with COPD who came in with abdominal pain and some diarrhea. CT scan showed evidence of gallstones with inflammatory changes of the gallbladder. C. diff toxin was negative. CBC and chemistry profile and liver function tests were all within normal limits. Her pain and symptoms were felt to be compatible with gallstones. She was treated preoperatively with some IV Solu-Medrol and respiratory treatments because of her COPD and Dr. Vines performed a laparoscopic cholecystectomy on 10/20/2018. She desired to go home that evening as she was doing well and was able to be discharged at that point. FINAL DIAGNOSES: 1. Acute cholecystitis with cholelithiasis. 2. Acute exacerbation of chronic obstructive pulmonary disease. 3. Chronic tobacco and marijuana abuse. OPERATION, PROCEDURES AND COMPLICATIONS: Her procedure would be laparoscopic cholecystectomy with cholangiogram. Complications none. CONSULTATIONS: Dr. Torres and Dr. Galvan. DISPOSITION: Home meds remain the same. No steroids or antibiotics were prescribed. Complete tobacco and marijuana avoidance for long benefit. Office followup with Dr. Powell in [address] Torres in 1 week as well. PROGNOSIS: Guarded. SUSSY POWELL MD DR: NANETTE/johnson JOB#: [id number] / [id number]
--- NOTE | 2018-10-21 16:07 | PATHOLOGY ---
[facility] Accession Number: [id number] . 01 Material submitted: . gallbladder - GALLBLADDER . 01 Clinical history: . Gallstone/pancreatitis . 02 Diagnosis: Gallbladder, laparoscopic cholecystectomy: - Cholelithiasis. - Chronic cholecystitis with increased eosinophils. - Focal lipogranulomata of gallbladder neck lymph node. . (JPM:mml; 10/21/2018) QL/10/21/2018 . 02 Comment: There is no evidence of malignancy. . (JPM:mml; 10/21/2018) . 02 Electronically signed: . Riki Vasquez MD, Pathologist NPI- [id number] . 01 Gross description: . The specimen is received in formalin, labeled "Amanda Durán, gallbladder" and consists of an intact, pink-yoder, smooth, and hemorrhagic gallbladder measuring 8.3 cm in length and up to 2.7 cm in diameter. The margin is inked black. Opening reveals a lumen containing thick green material and multiple green smooth calculi measuring between 0.2 cm and 1.9 cm which grossly occlude the neck. The mucosa is pink-red and trabeculated with an average wall thickness of 0.1 cm. No masses are identified. Located adjacent to the gallbladder neck is a lymph node candidate measuring 0.5 cm. Project Associate sections are submitted in A1. (SDY; 10/20/2018) SYU/SYU . 02 Pathologist provided ICD-10: K80.10 . 02 CPT . 495456 Specimen Comment: A courtesy copy of this report has been sent to Specimen Comment: [phone], , . Specimen Comment: Report sent to ,DR POWELL / DR GASTELUM Performed at: 01 [facility] [id number] [facility] [address], [place], [place] [id number] MD Brien Irving MD Phone: [phone] Performed at: 02 [facility] [address], [place] [id number] MD Riki Vasquez MD Phone: [phone]
== END 2018-10-20 16:28 | disposition home or self-care (01) | DRG 417 ==
LOC: ER 06:12 → 4 NORTH 09:16
PROVIDERS: ADMIT Family Medicine; ATTEND Family Medicine
PROC: BF121ZZ Fluoroscopy of Gallbladder using Low Osmolar Contrast (ICD-10-PCS; 2018-10-20)
PROC: 0FT44ZZ Resection of Gallbladder, Percutaneous Endoscopic Approach (ICD-10-PCS; principal; 2018-10-20 08:30)
DX: K80.00 Calculus of gallbladder with acute cholecystitis without obstruction (principal); K85.10 Biliary acute pancreatitis without necrosis or infection; J44.1 Chronic obstructive pulmonary disease with (acute) exacerbation; F41.9 Anxiety disorder, unspecified; F12.10 Cannabis abuse, uncomplicated; F17.210 Nicotine dependence, cigarettes, uncomplicated; F32.9 Major depressive disorder, single episode, unspecified; I25.10 Atherosclerotic heart disease of native coronary artery without angina pectoris; Z87.01 Personal history of pneumonia (recurrent); Z86.73 Personal history of transient ischemic attack (TIA), and cerebral infarction without residual deficits; Z90.710 Acquired absence of both cervix and uterus; Z88.1 Allergy status to other antibiotic agents; Z88.0 Allergy status to penicillin; Z91.018 Allergy to other foods; Z71.6 Tobacco abuse counseling
CPT/HCPCS: 36415; 71046; 74177; 74300; 80053; 80307; 81001; 82274; 83605; 83690; 85025; 85027; 87045; 87493; 88304; 94640; 94760; 96374; 96375; A7015; C9113; J0360; J1100; J1610; J1885; J2001; J2250; J2405; J2704; J2710; J2920; J3010; J3490; J7030; J7120; J7512; J7620; Q9966; Q9967; 99285-25

== ENCOUNTER → 2019-05-11 | Outpatient (CLI) | payer OTHER, MEDICAID ==
[2018-10-20 15:00] VITALS: BP 139/67
[~2019-05-11] MED LIST changes: +ALBU2.5V8 INH; +CYCL10TA2 PO; +HYDR25TA PO; +IOHEXOL 180 MG/ML 10 ML VIAL. ONE; +OXYC1TAB15 PO; +methylPREDNISolone ACETATE 40 MG/ML VIAL. ONE; +methylPREDNISolone ACETATE 80 MG/ML VIAL. ONE
--- NOTE | 2019-05-11 21:04 | PAIN ---
DATE OF SERVICE: 05/11/2019 INITIAL CONSULTATION FOR PAIN CLINIC CHIEF COMPLAINT: Low back and right lower extremity pain. HISTORY OF PRESENT ILLNESS: This is a 63-year-old female who presents with history of pain for about 6 months, not a result of any specific injury or action she is aware of, but it has got worse over a time in the low back with radiating pain in the right leg now and right anterior thigh, anterior medial thigh, medial lower leg as well as the posterior gluteus, posterior thigh, posterior lower leg into the foot, top of the foot and base of the foot with walking, standing, changing positions; much worse with ambulation, better with sitting down or lying down. The patient reports it still awakens her from sleep fairly frequently, sometimes up to 3-4 times a night. The patient reports it does not affect her bowel or bladder control, but she does use a cane and she is holding it in her left hand and has it with her today. The patient has tried Percocet as well as Flexeril, neither of which has decreased the pain significantly. The patient reports the pain is constant, sharp, stabbing, throbbing, shooting with tingling and numbness in the right lower extremity, burning, primarily at night, aching, cold as well on the right leg. The patient rates her disability rating from 0-10, 10 being the worst; it is a 9 with family and home responsibilities; 8 with self-care; 10 with recreation, social activity, occupation, sexual behavior and life-support activities. The patient did have MRI scan of the lumbar spine, showing multilevel degenerative changes, spondylitic disk at L2-L3 with superimposed right lateral disk protrusion, narrowing of the right lateral recess. Disk protrusion may abut the descending right L3 nerve root. L3-L4 shows broad-based posterior disk bulge and facet hypertrophy, mild right and no significant left neural foraminal narrowing. L4-L5 shows small broad-based posterior disk bulge and severe arthropathy with minimal right and mild left neural foraminal narrowing. The patient reports no loss of motor function, but significant fatigability in the right lower extremity with walking or standing, better with sitting and leaning forward. She reports when she goes to a store, she does use the electric cart if she has one available. The patient has not tried any formal physical therapies currently. No recent chiropractic treatments or other modalities. She has been doing some stretching on her own and trying to exercise as best as possible. PAST MEDICAL HISTORY: Significant for shortness of breath, cigarette smoking, arthritis and TIA. PAST SURGICAL HISTORY: Previous surgeries include hysterectomy and carpal tunnel repair bilaterally. CURRENT MEDICATIONS: Include alprazolam, Cymbalta, ProAir inhaler, hydroxyzine, oxycodone and cyclobenzaprine. ALLERGIES: THE PATIENT IS ALLERGIC TO PENICILLIN AND STRAWBERRIES. SOCIAL HISTORY: The patient does not drink alcohol, does smoke less than a pack a day for the past 45 years. Also smokes marijuana daily. No other illegal, illicit or recreational drugs. She is , lives with her spouse, lives locally in [place], [place] and reports she is currently retired. REVIEW OF SYSTEMS: The patient's review of systems is positive for those items mentioned in the history of present illness. All systems reviewed and otherwise negative. It is complete, full and well documented on the patient's chart. PHYSICAL EXAMINATION: VITAL SIGNS: The patient's blood pressure is 125/78, pulse 71, respirations 18 and temperature is 97.9 degrees Fahrenheit. Height is 5 feet 5 inches, weight is 167 pounds. GENERAL: The patient is awake, alert, oriented, appropriate, very pleasant demeanor. HEENT: Exam shows normocephalic, atraumatic. Extraocular movements are intact and symmetrical. Oral cavity, mucous membranes are moist and pink. Dentition is intact. NECK: Shows anterior throat supple, without palpable lymphadenopathy noted. Swallow reflex is symmetrical. CHEST: Shows normal on inspection. Breath sounds are clear bilaterally. HEART: Shows S1, S2 clear. No murmurs auscultated. ABDOMEN: Soft, nontender and nondistended. No palpable organomegaly is noted. No rebound or guarding demonstrated. BACK: Shows spine grossly in the midline. Normal-appearing thoracic kyphosis, cervical lordotic curvature and lumbar lordotic curvature. Lumbar paraspinous muscle shows symmetrical on inspection. On palpation, it shows some moderate tenderness diffusely, but only diffusely without significant trigger points. No radiation of pain, no asymmetry, no tenderness over the sacrum or sacroiliac regions or the spinous processes with palpation. The patient shows good rotational motion of the lumbar spine, both laterally greater than 10 degrees right and left as well as extension greater than 10 degrees, forward flexion 45 degrees, without significant pain reported. EXTREMITIES: The patient's lower extremities show deep tendon reflexes at 1+ in the patellar and tendo calcaneus tendons are equal. Motor exam is approximately 4 on a scale of 5 on the right with 5/5 on the left with dorsiflexion, extension, quadriceps and hamstring flexion. Peripheral pulses are 1+ posterior tibia. No peripheral edema is noted. Straight leg raise noted to be positive on the right as well, but not above 45 degrees with pain in the anterior lateral thigh, decreased with knee flexion; left side is negative. Gaenslen's and Byron's maneuvers are negative bilaterally. The patient does have some tenderness over the right knee with direct palpation as well, but no instability. The patient's skin shows warm and dry and good turgor. No edema. No sores, rashes, or bruises throughout. The patient is able to stand, stand on her toes without difficulty, walks with a slight favoring gait, does appear to favor the right lower extremity and has a cane she is using in her left hand. IMPRESSION: 1. This is a 63-year-old female with approximately 6-month history of increasing pain in the low back and right lower extremity in a radicular fashion. 2. Cigarette smoking. 3. Marijuana use. 4. Arthritis. PLAN: Options were discussed with the patient including conservative medical managements, physical therapies and interventional techniques. She would like to pursue interventional techniques. We discussed a lumbar epidural steroid injection using description as well as anatomical models to describe the procedure. Risks were then discussed including, but not limited to bleeding, infection, possibility of epidural hematoma, subsequent neurological compromise, dural puncture, headaches, spinal cord and/or nerve damage, side effects of steroid medication and poor results regarding pain control. The patient understands and wishes to proceed. The patient will return to the clinic in approximately 2 weeks for followup. She was counseled on her return appointment, activity level and side effects to be aware of. DIAGNOSES: Lumbar radiculopathy with lumbar degenerative disk disease with lumbar herniated disk. PROCEDURE: Lumbar epidural steroid injection in translaminar approach at L3-L4 level using C-arm fluoroscopic guidance under sterile prep and drape using local anesthetic. MEDICATIONS INJECTED: A total of 120 mg Depo-Medrol plus 10 mL of preservative-free normal saline and 2 mL of contrast. CONDITION AT DISCHARGE: Stable. The patient tolerated procedure well, had no complications. MINH HUERTA MD DR: ANA/johnson JOB#: [id number] / [id number] SUSSY Barger MD
== END ==
LOC: PNCL 10:56
PROVIDERS: ATTEND Anesthesiology
DX: M51.16 Intervertebral disc disorders with radiculopathy, lumbar region (principal); F19.90 Other psychoactive substance use, unspecified, uncomplicated; Z87.891 Personal history of nicotine dependence; Z87.39 Personal history of other diseases of the musculoskeletal system and connective tissue; Z86.73 Personal history of transient ischemic attack (TIA), and cerebral infarction without residual deficits; Z90.710 Acquired absence of both cervix and uterus; Z88.0 Allergy status to penicillin; Z91.018 Allergy to other foods
CPT/HCPCS: 62323; J1030; J1040; Q9965

== ENCOUNTER → 2019-05-26 | Outpatient (CLI) | payer OTHER, MEDICAID ==
[2018-10-20 15:00] VITALS: BP 139/67
[~2019-05-26] MED LIST changes: -IOHEXOL 180 MG/ML 10 ML VIAL. ONE; -methylPREDNISolone ACETATE 40 MG/ML VIAL. ONE; -methylPREDNISolone ACETATE 80 MG/ML VIAL. ONE
--- NOTE | 2019-05-26 11:12 | RAD ---
Bilateral lower extremity arterial ultrasound History: Decreased pulses in the feet smoker for 40+ years Findings: Multiple grayscale, color, and duplex spectral analysis sonographic images were acquired of the lower extremity arteries bilaterally. There are no previous similar exams. There is scattered mild plaque bilaterally. There is mild increased velocity of the more distal right superficial femoral artery although no significant stenosis demonstrated on grayscale or color images. There are triphasic and biphasic waveforms bilaterally. Velocities in cm/sec: RIGHT Common femoral artery 150 Profunda femoris artery 71 Proximal SFA 91 Mid SFA 116 Distal SFA 126 Popliteal artery 53 Posterior tibial artery 57 proximally and 94 distally Peroneal artery 41 Anterior tibial artery 75 Dorsalis pedis artery 45 LEFT: Common femoral artery 170 Profunda femoris artery 117 Proximal SFA 103 Mid SFA 120 Distal SFA 84 Popliteal artery 75 Posterior tibial artery 52 proximally and 61 distally Peroneal artery 56 Anterior tibial artery 59 Dorsalis pedis artery 43 Impression: 1. No significant stenosis or vessel occlusion is demonstrated. There is mild scattered plaque bilaterally. Electronically signed by: Himanshu Shirley MD (05/26/2019 11:09 AM) [email or web address]
== END ==
LOC: US 07:17
PROVIDERS: ATTEND Orthopaedic Surgery
DX: I70.293 Other atherosclerosis of native arteries of extremities, bilateral legs (principal); J44.9 Chronic obstructive pulmonary disease, unspecified; F41.9 Anxiety disorder, unspecified; F32.9 Major depressive disorder, single episode, unspecified; F17.200 Nicotine dependence, unspecified, uncomplicated; F12.90 Cannabis use, unspecified, uncomplicated; Z90.710 Acquired absence of both cervix and uterus; Z90.89 Acquired absence of other organs; Z98.890 Other specified postprocedural states
CPT/HCPCS: 93925

== ENCOUNTER → 2019-05-30 | Outpatient (CLI) | payer OTHER, MEDICAID ==
[2018-10-20 15:00] VITALS: BP 139/67
[~2019-05-30] MED LIST changes: +IOHEXOL 180 MG/ML 10 ML VIAL. ONE; +methylPREDNISolone ACETATE 40 MG/ML VIAL. ONE; +methylPREDNISolone ACETATE 80 MG/ML VIAL. ONE
--- NOTE | 2019-05-30 10:05 | PAIN ---
DATE OF SERVICE: 05/30/2019 PROGRESS NOTE FOR PAIN CLINIC DIAGNOSES: Lumbar radiculopathy with lumbar degenerative disk disease and lumbar herniated disk. HISTORY OF PRESENT ILLNESS: The patient is a 64-year-old female, who returns for followup status post lumbar epidural steroid injection x1. The patient reports about 100% improvement for the first week or so. The patient reports after 9-10 days, the pain began to return in the low back, right lower extremity, posterior gluteus, lateral thigh, anterior thigh, medial thigh, medial lower leg, and also some pain in the right knee. The patient reports that she is seeing orthopedic surgeon for that soon. The patient rates her pain as 8 on a scale of 10 at its worst, 8 on average, 6 at its least, and is 6 today. The patient reports it is aching, sharp, shooting in the leg, tingling and burning in legs as well as a constant, unbearable in the back at times, and also in the knee. The patient reports it awakens her from sleep about every 3-4 hours; when it was returning in the first week or so, sleeping much better; increased with distance walking, doing work activities, household activities; much greater ease and comfort. The patient reports no new motor or sensory deficits, no new bowel or bladder incontinence or other complaints. PHYSICAL EXAMINATION: VITAL SIGNS: The patient's blood pressure 124/89, pulse 81, respirations 16, temperature 97.8 degree Fahrenheit, and weight is 164 pounds. GENERAL: The patient is awake, alert, oriented, appropriate, very pleasant demeanor. HEENT: Shows normocephalic, atraumatic. Extraocular movements are intact and symmetrical. Oral cavity: Mucous membranes moist and pink. Dentition is intact. NECK: Shows anterior throat supple without palpable lymphadenopathy noted. Swallow reflex symmetrical. CHEST: Shows normal on inspection. Breath sounds are clear to auscultation bilaterally. HEART: Shows S1, S2 clear. No murmurs auscultated. ABDOMEN: Soft, nontender, nondistended. BACK: Shows spine grossly in the midline; normal appearing thoracic kyphosis; minor flattening of lumbar lordotic curvature. Lumbar paraspinous muscle shows symmetrical on inspection; on palpation, some moderate tenderness diffusely bilaterally going diffusely without radiation. EXTREMITIES: The patient's lower extremities show deep tendon reflexes at 1+ in the patellar and tendo calcaneus tendons. Motor exam is strong with 4 on a scale of 5 on the right, 5/5 with left dorsiflexion and extension. Peripheral pulses are 1+ posterior tibia. No peripheral edema is noted bilaterally. IMPRESSION AND PLAN: Options were discussed with the patient. The patient's old chart was reviewed as well as her current medication regimen was updated. Current review of systems was updated today as well. We will proceed with a second in the series of lumbar epidural steroid injection today with fluoroscopic guidance. Risks were again discussed including but not limited to bleeding, infection, possibility of epidural hematoma, subsequent neurological compromise, dural puncture, headaches, spinal cord and/or nerve damage, side effects of steroid medication, and poor results regarding pain control. The patient understands and wished to proceed. The patient will return to clinic in approximately 2 weeks for followup. She was counseled on return appointment, activity level, and side effects to be aware of. PROCEDURE: Lumbar epidural steroid injection, translaminar approach at L3-L4 level using C-arm fluoroscopic guidance under sterile prep and drape using local anesthetic. MEDICATION INJECTED: A total of 120 mg Depo-Medrol plus 10 mL of preservative-free normal saline and 2 mL of contrast. CONDITION AT DISCHARGE: Stable. The patient tolerated the procedure well and had no complications. MINH HUERTA MD DR: ANA/johnson JOB#: [id number] / [id number] SUSSY Barger MD
== END ==
LOC: PNCL 07:53
PROVIDERS: ATTEND Anesthesiology
DX: M51.16 Intervertebral disc disorders with radiculopathy, lumbar region (principal)
CPT/HCPCS: 62323; J1030; J1040; Q9965

== ENCOUNTER → 2019-06-13 | Outpatient (CLI) | payer OTHER, MEDICAID ==
[2018-10-20 15:00] VITALS: BP 139/67
[~2019-06-13] MED LIST changes: -IOHEXOL 180 MG/ML 10 ML VIAL. ONE; -methylPREDNISolone ACETATE 40 MG/ML VIAL. ONE; -methylPREDNISolone ACETATE 80 MG/ML VIAL. ONE
--- NOTE | 2019-06-13 10:26 | PAIN ---
DATE OF SERVICE: 06/13/2019 PROGRESS NOTE FOR PAIN CLINIC DIAGNOSES: Lumbar radiculopathy with lumbar degenerative disk disease and lumbar herniated disk. HISTORY OF PRESENT ILLNESS: The patient is a 64-year-old female who returns for followup status post lumbar epidural steroid injection x 2. The patient reports that while the pain has decreased, she had significant nausea and vomiting the day of the shot with some increased pain in the low back secondary to throwing up. The patient reports after that the pain, decreased was in the low back and right lower extremity as it was previously, posterior gluteus thigh, radiating to the anterior thigh, medial thigh on the right side. The patient reports there is numbness and tingling and cold sensation in her right foot. She reports it is aching, sharp, tight, cramping, burning, tingling unbearable at times. The patient reports that overall about 50% improvement since the first injection. The patient reports no new motor or sensory deficits, no new bowel or bladder incontinence. The patient reports she has increased distance walking and doing household activities with greater ease and comfort, but the pain is returning now in the low back and right leg. The patient is somewhat apprehensive about trying another injection because of the nausea and vomiting she had after the last injection. The patient reports the pain is 10 on a scale of 10 at its worst over the past week, 8 on average, 6 at its least and is an 8 today. PHYSICAL EXAMINATION: VITAL SIGNS: The patient's blood pressure 142/83, pulse 71, respirations are 18, temperature 97.8 degrees Fahrenheit, height is 5 feet 5 inches and weight is 170 pounds. GENERAL: The patient is awake, alert, oriented, appropriate, very pleasant demeanor. HEENT: Shows normocephalic, atraumatic. Extraocular movements are intact and symmetrical. Oral cavity: Mucous membranes moist and pink. NECK: Shows anterior throat supple without palpable lymphadenopathy noted. Swallow reflex symmetrical. CHEST: Shows normal on inspection. Breath sounds are clear bilaterally. HEART: Shows S1, S2 clear. No murmurs auscultated. ABDOMEN: Soft, nontender, nondistended. No palpable organomegaly is noted. No rebound or guarding demonstrated. BACK: Shows spine grossly in the midline. Normal appearing thoracic kyphosis and some flattening of lumbar lordotic curvature. Lumbar paraspinous muscle shows symmetrical on inspection, on palpation shows some moderate tenderness diffusely bilaterally going diffusely in the low lumbar distribution and paraspinous musculature without radiation, without trigger points. The patient has good rotational motion of lumbar spine, both laterally as well as extension and flexion without significant difficulty. EXTREMITIES: The patient's lower extremities show deep tendon reflexes at 1+ in the patellar and tendo calcaneus tendons. Motor exam is approximately 4 on a scale 5 on the right with dorsiflexion, extension and 5/5 on the left. Peripheral pulses are 1+ posterior tibia. No peripheral edema is noted bilaterally. Options were discussed with the patient. The patient's old chart was reviewed as her current medication regimen updated. Current review of systems updated today as well. We will hold on any further injections by her request today. The patient will maintain stretching and strengthening exercises as well as heat application to the low back. Also, try Medrol Dosepak. The patient was given instructions about side effects to be aware of with the medication and will follow up in approximately 2 weeks or sooner as necessary. MINH HUERTA MD DR: ANA/johnson JOB#: [id number] / [id number]
== END | disposition home or self-care (01) ==
LOC: PNCL 07:53
PROVIDERS: ATTEND Anesthesiology
DX: M51.16 Intervertebral disc disorders with radiculopathy, lumbar region (principal)
CPT/HCPCS: G0463

== ENCOUNTER 2020-05-26 11:02 | Emergency (ER) | payer MEDICARE, MEDICAID ==
[~2020-05-26] VITALS: Ht 165.1 cm; Wt 72.0 kg
[2020-05-26 11:20] VITALS: BP 121/84
[2020-05-26] MEDS ORDERED: LIDOCAINE 1% Multi-Dose 20 ML VIAL. INJ ONE (11:30)
[2020-05-26] MEDS ORDERED: HYDROcodone/APAP 5/325MG 1 TAB TABLET PO ONE (11:30)
[2020-05-26] MEDS ORDERED: CLIN300C8 PO (11:43)
--- NOTE | 2020-05-26 11:44 | PHYS DOC ---
Past Medical History Past Medical History: Anxiety, Depression, Migraines, TIA, Other Additional Past Medical Histor: "mini stroke" Past Surgical History: Hysterectomy, Other Additional Past Surgical Histo: bladder sling Smoking Status: Current Some Day Smoker Alcohol Use: Rarely Drug Use: Marijuana General Adult EDM: Chief Complaint: LACERATION/AVULSION HPI: HPI: Patient is a 64 year old female who presents with Wednesday was walking back to her role a bed and hit her knee on the side bar causing a large L-shaped lace ration over the dorsal patella. Healing process is already started. The wound is gaping open and edges are not approximated. Patient has been walking on the extremity. Rates her pain an aching nonradiating 8 out of 10. States her tetanus is recent. Patient has a history of migraines, depression, hysterectomy, TIA, bladder sling, former smoker. Review of Systems: Review of Systems: Constitutional: Denies fever or chills. [] Eyes: Denies change in visual acuity. [] HENT: Denies nasal congestion or sore throat. [] Respiratory: Denies cough or shortness of breath. [] Cardiovascular: Denies chest pain or edema. [] GI: Denies abdominal pain, nausea, vomiting, bloody stools or diarrhea. [] : Denies dysuria. [] Musculoskeletal: Denies back pain. +Right knee joint pain. [] Integument: Denies rash. +Right knee laceration[] Neurologic: Denies headache, focal weakness or sensory changes. [] Endocrine: Denies polyuria or polydipsia. [] Lymphatic: Denies swollen glands. [] Psychiatric: Denies depression or anxiety. [] Heart Score: Risk Factors: Risk Factors: DM, Current or recent (<one month) smoker, HTN, HLP, family history of CAD, obesity. Risk Scores: Score 0 - 3: 2.5% MACE over next 6 weeks - Discharge Home Score 4 - 6: 20.3% MACE over next 6 weeks - Admit for Clinical Observation Score 7 - 10: 72.7% MACE over next 6 weeks - Early Invasive Strategies Current Medications: Current Medications Medications (Trade) Dose Ordered Sig/Otf Start Time Stop Time Status Last Admin Dose Admin Acetaminophen/ Hydrocodone Bitart (Lortab 5/325) 1 tab 1X ONCE 05/26/20 11:30 05/26/20 11:31 Lidocaine HCl (Lidocaine 1% 20ml Vial) 20 ml 1X ONCE 05/26/20 11:30 05/26/20 11:31 Allergies: Allergies: Allergies Coded Allergies Type Severity Reaction Last Updated Verified strawberry Allergy Severe throat swelling, hives 10/20/18 Yes Penicillins Allergy Intermediate rash 10/20/18 Yes amoxicillin Allergy Intermediate rash 10/26/16 Yes Physical Exam: PE: Constitutional: Well developed, well nourished, no acute distress, non-toxic appearance. [] HENT: Normocephalic, atraumatic, bilateral external ears normal, oropharynx moist, no oral exudates, nose normal. [] Eyes: PERRLA, EOMI, conjunctiva normal, no discharge. [] Neck: Normal range of motion, no tenderness, supple, no stridor. [] Cardiovascular:Heart rate regular rhythm, no murmur [] Lungs & Thorax: Bilateral breath sounds clear to auscultation [] Abdomen: Bowel sounds normal, soft, no tenderness, no masses, no pulsatile masses. [] Skin: Warm, dry, no erythema, no rash. Right knee laceration.[] Back: No tenderness, no CVA tenderness. [] Extremities: Right dorsal knee tenderness, no cyanosis, no clubbing, Right knee ROM limited intact due to laceration, 1-2+ edema. [] Neurologic: Alert and oriented X 3, normal motor function, normal sensory function, no focal deficits noted. [] Psychologic: Affect normal, judgement normal, mood normal. [] EKG: EKG: [] Radiology/Procedures: Radiology/Procedures: [] Impression: [facility] [address] [place], [place] [id number] IMAGING REPORT Signed PATIENT: JUDY ESPANA ACCOUNT: [id number] : 1955 LOCATION: ER AGE: 64 SEX: F EXAM STATUS: PRE ER ORD. PHYSICIAN: JOLLY RUSSELL APRN REASON: laceration over right knee PROCEDURE: KNEE RIGHT 4V Examination: KNEE RIGHT 4V History: Reason: laceration over right knee / Spl. Instructions: / History: Comparison/Correlation: None Findings: 4 images of the right knee were obtained. Patellofemoral compartment remodeling is present laterally. Small knee joint effusion is present. No fracture or bone destruction. Laceration soft tissue defect at the anterior aspect of the knee is evident best seen on the patellar sunrise view. No radiopaque foreign body. Impression: Soft tissue laceration. Joint effusion. Patellofemoral compartment degenerative change. Electronically signed by: Christian Moreno MD (05/26/2020 12:14 PM) [id number] DICTATED and SIGNED BY: CHRISTIAN MORENO MD DATE: 05/26/20 1214 Course & Med Decision Making: Course & Med Decision Making Pertinent Labs and Imaging studies reviewed. (See chart for details) See HPI. No laxity in the knee joint or deformity. Tenderness over the dorsal knee with 1+ swelling. No bruising is seen. Patient is given [place] in the ED. Patient is placed in a knee immobilizer. Patient is referred to wound care clinic. I have given her a dose of clindamycin in the ED. She will continue taking clindamycin as outpatient. Patient began itching but no rash of facial swelling after [place] was given and stated that she was still in pain. Patient was given Benadryl, Prednisone and 2mg of IM Morphine. Wound is dressed with nonstick dressing and gauze and wrapped. Laceration repair Location: Right dorsal patella "L" shaped 2cm x 2cm with opening 0.5cm Local anesthesia: 1% lidocaine Interrupted sutures/Internal sutures: 3-0 sutures (5 loose sutures) Nerve/ligament/muscle damage: None Cleaning and irrigation: opened wound and cleaned with Saline and chlorhexidine The appropriate timeout was taken. The area was prepped and draped in the usual sterile fashion. The wound was copiously irrigated with normal saline and chlorhexidine. Patient tolerated well without complication. Dressing was applied to the area follow-up education is given to observe for signs and symptoms of infection, bleeding and to follow-up promptly if these occur. Patient can return in 48 hours for a wound recheck. Sutures to be removed in 7 to 10 days. [] Celine Disclaimer: Celine Disclaimer: This electronic medical record was generated, in whole or in part, using a voice recognition dictation system. Departure Departure Impression: Primary Impression: Laceration Disposition: 01 DC HOME SELF CARE/HOMELESS Condition: STABLE Referrals: SUSSY POWELL MD (PCP) Patient Instructions: Laceration Care, Adult Additional Instructions: Call Wound Care Clinic at [phone]. Follow up with wound care clinic as soon as possible. Sutures need to be removed in 10 days. Take antibiotic as prescribed and with food. Use knee immobilizer so that the wound does not break open. Scripts Tramadol Hcl (TRAMADOL HCL) 50 Mg Tablet 50 MG PO Q6HRS PRN for PAIN, #10 TAB Prov: JOLLY RUSSELL APRN 05/26/20 Clindamycin Hcl (CLINDAMYCIN HCL) 300 Mg Capsule 1 CAP PO TID for 10 Days, #30 CAP Prov: JOLLY RUSSELL APRN 05/26/20 JOLLY RUSSELL APRN May 26, 2020 11:43
[2020-05-26] MEDS ORDERED: CLINDAMYCIN HCL 150 MG CAPSULE. PO ONE (11:45)
--- NOTE | 2020-05-26 12:17 | RAD ---
Examination: KNEE RIGHT 4V History: Reason: laceration over right knee / Spl. Instructions: / History: Comparison/Correlation: None Findings: 4 images of the right knee were obtained. Patellofemoral compartment remodeling is present laterally. Small knee joint effusion is present. No fracture or bone destruction. Laceration soft tissue defect at the anterior aspect of the knee is evident best seen on the patellar sunrise view. No radiopaque foreign body. Impression: Soft tissue laceration. Joint effusion. Patellofemoral compartment degenerative change. Electronically signed by: Christian Sands MD (05/26/2020 12:14 PM) [id number]
[2020-05-26] MEDS ORDERED: diphenhydrAMINE HCL 25 MG CAPSULE PO ONE (12:30)
[2020-05-26] MEDS ORDERED: MORPHINE SULFATE 4 MG/ML VIAL. IM ONE (12:30)
[2020-05-26] MEDS ORDERED: TRAM50TA PO (12:52)
[2020-05-26] MEDS ORDERED: ONDANSETRON ODT 4 MG TAB.RAPDIS. PO ONE (13:00)
[2020-05-26] MEDS ORDERED: predniSONE 10 MG TABLET PO ONE (13:00)
== END 2020-05-26 13:20 | disposition home or self-care (01) ==
LOC: ER 11:02
DX: S81.011A Laceration without foreign body, right knee, initial encounter (principal); G43.909 Migraine, unspecified, not intractable, without status migrainosus; F17.200 Nicotine dependence, unspecified, uncomplicated; Z86.73 Personal history of transient ischemic attack (TIA), and cerebral infarction without residual deficits; Z88.0 Allergy status to penicillin; Z88.1 Allergy status to other antibiotic agents; Z91.018 Allergy to other foods; W22.8XXA Striking against or struck by other objects, initial encounter; Y93.89 Activity, other specified; Y92.89 Other specified places as the place of occurrence of the external cause; Y99.8 Other external cause status
CPT/HCPCS: 12001; 73564; 96372; 99284; J2270; J3490; J7512; Q0163

== ENCOUNTER → 2020-07-25 | Outpatient (CLI) | payer MEDICARE, MEDICAID ==
[~2020-07-25] MED LIST changes: +ASPI325T8 PO; +CETI10TA74 PO; +CLIN300C9 PO; +TRAM50TA PO
--- NOTE | 2020-07-25 11:15 | KCIC ---
MRI STUDY OF THE RIGHT KNEE WITHOUT CONTRAST CLINICAL INDICATIONS: Patient fell in June. Right knee tenderness with right knee joint effusion. Painful to bear weight. TECHNIQUE: T1 and T2 and proton density weighted MRI sequences of the right knee was performed. Image s were obtained in all 3 planes. FINDINGS: The anterior and posterior cruciate ligaments are intact. There is mild tendinosis of the s uperior aspect of the patellar tendon at the attachment to the inferior pole of the patella. The quad riceps and patellar tendons are intact. There is mild prepatellar bursitis. There is a small tear of the inner articular edge of the posterior horn of the lateral meniscus at the junction with the body. Degenerative signal abnormality of the body of the medial meniscus is seen. No articular surface tea r of the medial meniscus is seen. The medial collateral ligament is intact and no meniscocapsular sep aration is seen. The lateral collateral ligament complex and iliotibial band and popliteus tendon are intact. No posterior lateral corner injury is seen. No bone contusion or fracture or marrow infiltra tive process is seen. There is mild degenerative spurring of the medial and lateral tibiofemoral join t compartments. No articular cartilage defect or significant osteochondral abnormality of the medial or lateral tibiofemoral joint compartments is seen otherwise. The patella is normally aligned. There is severe chondromalacia patellae with loss of articular cartilage of the medial patellar facet and a pex and the medial aspect of the lateral patellar facet. There is subchondral stress reaction bone ma rrow edema and subchondral cyst formation of the patella. There is severe chondromalacia with loss of articular cartilage of the medial portion of the trochlear groove. There is moderate degenerative sp urring of the patellofemoral joint compartment. The medial and lateral retinacular ligaments are inta ct. No Pike's cyst is seen. Small knee joint effusion is seen. No loose body is evident. No muscle e susan is seen. IMPRESSION: Tendinosis of the patellar tendon at the attachment to the inferior pole of the patella. Mild prepatellar bursitis. Severe chondromalacia patellae and trochlear chondromalacia. Small tear of the inner articular edge of the lateral meniscus at the junction of the posterior horn and posterior body. No ligament tear. Electronically signed by: Manuelito Thomson MD (07/25/2020 11:12 AM) [place] [id number]
== END ==
LOC: KCIC MRI 09:34
PROVIDERS: ATTEND Family Medicine
DX: S83.281A Other tear of lateral meniscus, current injury, right knee, initial encounter (principal); M94.261 Chondromalacia, right knee; M25.461 Effusion, right knee; X58.XXXA Exposure to other specified factors, initial encounter; Y93.89 Activity, other specified; Y92.89 Other specified places as the place of occurrence of the external cause; Y99.8 Other external cause status
CPT/HCPCS: 73721

== ENCOUNTER → 2020-09-10 | Outpatient (CLI) | payer MEDICAID, MEDICARE ==
[~2020-09-10] MED LIST changes: -ASPI325T8 PO
== END ==
LOC: LAB 10:30
PROVIDERS: ATTEND Orthopaedic Surgery
DX: Z01.812 Encounter for preprocedural laboratory examination (principal); S83.271A Complex tear of lateral meniscus, current injury, right knee, initial encounter; Z20.822 Contact with and (suspected) exposure to COVID-19; Z88.0 Allergy status to penicillin; X58.XXXA Exposure to other specified factors, initial encounter; Y93.89 Activity, other specified; Y92.89 Other specified places as the place of occurrence of the external cause; Y99.8 Other external cause status
CPT/HCPCS: U0003

== ENCOUNTER 2020-09-13 06:59 | Day surgery (SDC) | payer MEDICAID, MEDICARE ==
[~2020-09-13] VITALS: Ht 160 cm; Wt 82.6 kg
[~2020-09-13 06:59] MED LIST changes: +CLINDAMYCIN 900MG PREMIX 50 ML IV ONE; +HYDROmorphone 2 MG/ML VIAL IVP PRN; +IV RINGERS,LACTATED 1000ML 1,000 ML IV SCH; +MORPHINE SULFATE 2 MG/ML VIAL. IVP PRN; +PROCHLORPERAZINE 10 MG/2 ML VIAL. IVP PRN; +fentaNYL PF VIAL 100 MCG/2 ML VIAL IVP PRN
[2020-09-13] MEDS ORDERED: fentaNYL PF VIAL 100 MCG/2 ML VIAL ONE ×2 (08:00→10:45)
[2020-09-13] MEDS ORDERED: LIDOCAINE 2% PF 5 ML VIAL. ONE (08:00)
[2020-09-13] MEDS ORDERED: ONDANSETRON PF 4 MG/2 ML VIAL. ONE (08:00)
[2020-09-13] MEDS ORDERED: PROPOFOL 10 MG/ML (20ML) VIAL. IV ONE (08:00)
[2020-09-13] MEDS ORDERED: DEXAMETHASONE SOD PHOS 4 MG/ML VIAL ONE (08:00)
[2020-09-13] MEDS ORDERED: EPINEPHrine VIAL 30 MG/30 ML VIAL ONE (08:35)
[2020-09-13] MEDS ORDERED: BUPIVACAINE-EPI 0.25% 30 ML VIAL KIT. ONE ×2 (08:36→10:04)
[2020-09-13] MEDS ORDERED: GLYCOPYRROLATE 1 MG/5 ML VIAL. ONE (09:23)
[2020-09-13] MEDS ORDERED: SEVOFLURANE 31 TO 60 MINUTES. IH ONE (09:39)
[2020-09-13] MEDS ORDERED: ePHEDrine PF IN SALINE 50 MG/10 ML SYRINGE. IV ONE (09:46)
--- NOTE | 2020-09-13 10:01 | PDOC4 ---
Operative Note Operative Note Date of Procedure: September 13, 2020 Preoperative Diagnosis: right knee lateral meniscus tear Postoperative Diagnosis: complex tear of lateral meniscus, current injury, right knee, initial encounter, S83.271A Procedures Performed: right knee arthroscopy, surgical, with meniscectomy, LATERAL, including meniscal shaving, including debridement/shaving of articular cartilage (chondroplasty) CPT 04250 Surgeon: Per Benítez MD Import Specialist: KENNETH Sainz Anesthesia: General Estimated Blood Loss: 5 mL Specimens: none Drains: none Complications: none Tourniquet time: 23 minutes at 300 mm Hg Indications for Procedure: The patient is a 65-year-old with right knee pain, unrelieved with nonoperative treatment. Her MRI shows a lateral meniscus tear. Given her failure of more conservative measures with continued severe and debilitating pain, I recommended surgery. Plan for right knee arthroscopy with lateral meniscectomy. We discussed potential risks of arthroscopic surgery, including risks of bleeding, infection, progressive arthritis, blood clots, or other potential surgical or anesthetic complications. We also discussed postoperative treatment and expectations including progression of arthritis following knee arthroscopy. In addition, we went over the effect of her marked quadriceps weakness on her recovery. I explained that the majority of her postoperative success will be more-so dependent on her ability to regain strength and compliance with aggressive formal therapy and home exercises. I demonstrated exercises again immediately preoperatively, and she has been doing them at home and her function appears slightly better. In addition the knee alignment appears normal, not varus. I again strongly recommend that she stop smoking given the deleterious effects on wound healing as well as her general health. All of her questions were answered and she desires to proceed with surgery. No new health concerns since the office visit. Written consent was obtained. Description of Operation: The patient was identified in the preoperative holding area. The correct right knee was marked by me. The patient was taken to the operating room, where a general anesthetic was used. Preoperative antibiotics were given intravenously. A time-out procedure was performed. A tourniquet was placed on the upper thigh. Local anesthetic 20 mL of 0.25% bupivacaine was injected using sterile technique into the knee joint. The limb was prepared circumferentially with ChloraPrep solution and sterile waterproof arthroscopy drapes were applied. The limb was exsanguinated with an Esmarch bandage and the tourniquet was inflated. Lateral and medial arthroscopy portals were established, away from the area of the previous healed laceration. The intraarticular arthroscopic examination showed an enlarged Hoffa fat pad, likely due to the previous anterior trauma, which might be causing symptoms that she is having and arthroscopic shaver resection and synovectomy was performed primarily for visualization but should also help her symptoms anteriorly. The medial meniscus was normal and stable to probing with minimal internal surface degenerative fraying at the posterior third, and the posterior root attachment was probed and seems fully intact without degenerative softening or need for meniscectomy. The medial tibiofemoral joint showed chondromalacia Outerbridge grade I, so no chondroplasty was required.The intercondylar notch was free of loose bodies, and the ACL was intact. The lateral tibiofemoral joint showed a complex unrepairable meniscus tear, and a meniscectomy was performed with basket forceps and the motorized shaver back to a smooth stable base. The tear was primarily in the middle one third of the meniscus but extended along the internal surface to the anterior and posterior one thirds of the meniscus. I did not completely detach the lateral meniscus rim, but I contoured the resection from the middle one third to the anterior and posterior one thirds using basket forceps and the motorized shaver back to a smooth stable base. The lateral articular surfaces showed chondromalacia Outerbridge grade II, so a shaving chondroplasty was performed removing loose unstable fragments of articular cartilage. The patellofemoral joint showed chondromalacia Outerbridge grade III, and a shaving chondroplasty was performed removing unstable fragments of cartilage with the shaver. The suprapatellar pouch, medial and lateral gutters were free of loose bodies. Copious irrigation was used to drain all meniscal and chondral fragments, and the knee was drained of fluid. The portals were closed with #3-0 Prolene interrupted sutures. Additional local anesthetic, 30 mL of 0.25% bupivacaine with epinephrine was injected. A bulky sterile dressing was applied and the tourniquet was released. Needle and sponge counts were correct and there were no apparent complications. PER BENÍTEZ MD Sep 13, 2020 10:00
[2020-09-13] MEDS ORDERED: OXYC1TAB15 PO (10:27)
[2020-09-13] MEDS ORDERED: PROM25TA10 PO (10:30)
[2020-09-13] MEDS ORDERED: ASPI325T8 PO (10:31)
[2020-09-13] MEDS ORDERED: oxyCODONE/APAP 5/325 1 TAB TABLET PO ONE ×2 (11:00)
[2020-09-13 11:28] VITALS: BP 119/79
[2020-09-13] MEDS ORDERED: hydrOXYzine 25 MG TABLET PO PRN (11:45)
== END 2020-09-13 12:38 | disposition home or self-care (01) ==
LOC: SURG 06:59
PROVIDERS: ATTEND Orthopaedic Surgery
DX: S83.271A Complex tear of lateral meniscus, current injury, right knee, initial encounter (principal); M94.261 Chondromalacia, right knee; J44.9 Chronic obstructive pulmonary disease, unspecified; F41.9 Anxiety disorder, unspecified; F32.9 Major depressive disorder, single episode, unspecified; F17.210 Nicotine dependence, cigarettes, uncomplicated; Z86.73 Personal history of transient ischemic attack (TIA), and cerebral infarction without residual deficits; Z90.710 Acquired absence of both cervix and uterus; Z98.890 Other specified postprocedural states; Z90.49 Acquired absence of other specified parts of digestive tract; Z79.899 Other long term (current) drug therapy; Z79.82 Long term (current) use of aspirin; Z72.89 Other problems related to lifestyle; Z88.0 Allergy status to penicillin; Z88.1 Allergy status to other antibiotic agents; Z88.8 Allergy status to other drugs, medicaments and biological substances; X58.XXXA Exposure to other specified factors, initial encounter; Y93.89 Activity, other specified; Y92.89 Other specified places as the place of occurrence of the external cause; Y99.8 Other external cause status
CPT/HCPCS: 29881; 97110; 97116; 97161; J0171; J1100; J2405; J2704; J3010; J3490

== ENCOUNTER 2021-01-29 12:56 | Observation (INO) | payer OTHER, MEDICAID ==
[~2021-01-29] VITALS: Ht 165.1 cm; Wt 81.8 kg
[~2021-01-29 12:56] MED LIST changes: +ASPI325T8 PO; -CLINDAMYCIN 900MG PREMIX 50 ML IV ONE; -HYDROmorphone 2 MG/ML VIAL IVP PRN; -IV RINGERS,LACTATED 1000ML 1,000 ML IV SCH; -MORPHINE SULFATE 2 MG/ML VIAL. IVP PRN; -PROCHLORPERAZINE 10 MG/2 ML VIAL. IVP PRN; -fentaNYL PF VIAL 100 MCG/2 ML VIAL IVP PRN
[2021-01-29] MEDS ORDERED: IV NORMAL SALINE 1000ML BAG 1,000 ML IV SCH (14:30)
[2021-01-29 15:10] LABS: BASO # 0.1 x10^3/uL (0.0-0.2); BASO % 1 % (0-3); EOS # 0.3 x10^3/uL (0.0-0.7); EOS % 3 % (0-3); HEMATOCRIT 41.6 % (36.0-47.0); HEMOGLOBIN 13.8 g/dL (12.0-15.5); LYMPH # 3.2 x10^3/uL (1.0-4.8); LYMPH % 32 % (24-48); MEAN CORPUSCULAR HEMOGLOBIN 28 pg (25-35); MEAN CORPUSCULAR HGB CONC 33 g/dL (31-37); MEAN CORPUSCULAR VOLUME 83 fL (79-100); MONO # 0.8 x10^3/uL (0.0-1.1); MONO % 8 % (0-9); NEUT # 5.7 x10^3/uL (1.8-7.7); NEUT % 57 % (31-73); PLATELET COUNT 323 x10^3/uL (140-400); RED BLOOD COUNT 4.99 x10^6/uL (3.50-5.40)
[2021-01-29] MEDS ORDERED: methylPREDNISolone SOD SUCC PF 125 MG/2 ML VIAL. IV ONE (15:15)
[2021-01-29] MEDS ORDERED: fentaNYL PF VIAL 100 MCG/2 ML VIAL IVP ONE ×2 (15:15→17:00)
[2021-01-29 15:23] LABS: CREATININE 0.9 mg/dL (0.6-1.0); GFR 63.2; POTASSIUM 4.6 mmol/L (3.5-5.1)
[2021-01-29 15:30] LABS: ALBUMIN 3.1 g/dL (3.4-5.0); ALBUMIN/GLOBULIN RATIO 0.8 (1.0-1.7); TOTAL BILIRUBIN 0.3 mg/dL (0.2-1.0); TOTAL PROTEIN 7.1 g/dL (6.4-8.2)
--- NOTE | 2021-01-29 15:46 | RAD ---
Exam: CT the thoracic and lumbar spine without contrast INDICATION: Pain with numbness in legs TECHNIQUE: Sequential axial images through the thoracic and lumbar spine obtained without IV contrast . Sagittal and coronal reformatted images were reconstructed from the axial data and reviewed. Exposure: One or more of the following in the visualized dose reduction techniques were utilized for this examination: 1. Automated exposure control 2. Adjustment of the MA and/or KV according to patient size 3. Use of iterative of reconstructive technique Comparisons: None FINDINGS: Thoracic spine: Vertebral body heights and alignment are well-maintained. Fracture to the thoracic spine is not identified. Schmorl's node noted at the superior endplate of T1 2. No significant spondylotic changes thoracic spine. Strandy opacities at dependent portion lungs likely representing atelectasis. There is a 6 mm nodule in the right lower lobe series 3 image 46. Lumbar spine: Vertebral body heights and alignment are well-maintained. There is a mildly angulated fracture of the left transverse process of L1, which is age indeterminate . Mild multilevel spondylotic changes lumbar spine with broad-based disc bulge at L3-L4, L4-L5 and L5-S 1. Mild bilateral neural foraminal stenosis at L5-S1. Visualized paraspinal soft tissues are unremarkable. IMPRESSION: 1. Angulated fracture of the left transverse process of L1, age indeterminate. Correlate with point tenderness. 2. Multilevel spondylotic changes lumbar spine as described above 3. A 6 mm Nodule in the right lower lobe. A six-month follow-up chest CT is recommended. Electronically signed by: Dejan Huynh MD (01/29/2021 3:44 PM) [facility]
--- NOTE | 2021-01-29 16:22 | PHYS DOC ---
Past Medical History Past Medical History: Depression, Other Additional Past Medical Histor: SRI,spinal cysts Past Surgical History: Cholecystectomy Additional Past Surgical Histo: bladder sling,right knee Smoking Status: Current Every Day Smoker Alcohol Use: None Drug Use: Marijuana General Adult EDM: Chief Complaint: BACK PAIN - NO INJURY HPI: HPI: Patient is a 65 year old female who presents with last night began having back pain and now she has leg numbness and cannot stand or walk. She states she can even move her leg. She states she has a history of cyst on her spine. Patient rates her pain 8 out of 10 states is just a sharp squeezing type pain or pressure. Patient history is cholecystectomy, spinal cyst, SRI, depression and smoker. Review of Systems: Review of Systems: Constitutional: Denies fever or chills. [] Eyes: Denies change in visual acuity. [] HENT: Denies nasal congestion or sore throat. [] Respiratory: Denies cough or shortness of breath. [] Cardiovascular: Denies chest pain or edema. [] GI: Denies abdominal pain, nausea, vomiting, bloody stools or diarrhea. [] : Denies dysuria. [] Musculoskeletal: +Bilateral back pain back pain or joint pain. + Bilateral leg weakness [] Integument: Denies rash. [] Neurologic: Denies headache, focal weakness or sensory changes. + Bilateral leg numbness [] Endocrine: Denies polyuria or polydipsia. [] Lymphatic: Denies swollen glands. [] Psychiatric: Denies depression or anxiety. [] Heart Score: C/O Chest Pain: No Risk Factors: Risk Factors: DM, Current or recent (<one month) smoker, HTN, HLP, family history of CAD, obesity. Risk Scores: Score 0 - 3: 2.5% MACE over next 6 weeks - Discharge Home Score 4 - 6: 20.3% MACE over next 6 weeks - Admit for Clinical Observation Score 7 - 10: 72.7% MACE over next 6 weeks - Early Invasive Strategies Current Medications: Current Medications Medications (Trade) Dose Ordered Sig/Otf Start Time Stop Time Status Last Admin Dose Admin Fentanyl Citrate (Fentanyl 2ml Vial) 50 mcg 1X ONCE 01/29/21 15:15 01/29/21 15:16 DC 01/29/21 15:35 50 MCG Methylprednisolone Sodium Succinate (SOLU-Medrol 125MG VIAL) 125 mg 1X ONCE 01/29/21 15:15 01/29/21 15:16 DC 01/29/21 15:36 125 MG Sodium Chloride 1,000 ml @ 1,000 mls/hr Q1H 01/29/21 14:30 01/29/21 15:29 DC 01/29/21 15:36 1,000 MLS/HR Allergies: Allergies: Allergies Coded Allergies Type Severity Reaction Last Updated Verified Penicillins Allergy Severe Anaphylaxis 09/13/20 Yes amoxicillin Allergy Severe Anaphylaxis 09/13/20 Yes strawberry Allergy Severe throat swelling, hives 09/13/20 Yes Physical Exam: PE: Constitutional: Well developed, well nourished, no acute distress, non-toxic appearance. [] HENT: Normocephalic, atraumatic, bilateral external ears normal, oropharynx moist, no oral exudates, nose normal. [] Eyes: PERRLA, EOMI, conjunctiva normal, no discharge. [] Neck: Normal range of motion, no tenderness, supple, no stridor. [] Cardiovascular:Heart rate regular rhythm, no murmur [] Lungs & Thorax: Bilateral breath sounds clear to auscultation [] Abdomen: Bowel sounds normal, soft, no tenderness, no masses, no pulsatile nguyễn s. [] Skin: Warm, dry, no erythema, no rash. [] Back: No tenderness, no CVA tenderness. [] Extremities: No tenderness, no cyanosis, no clubbing, ROM intact, no edema. [] Neurologic: Alert and oriented X 3, normal motor function, bilateral leg numbness sensory function, no focal deficits noted. Unable to move her bilateral legs for me during examination [] Psychologic: Affect normal, judgement normal, mood normal. [] Current Patient Data: Labs: Laboratory Tests Test 01/29/21 14:55 White Blood Count 10.0 x10^3/uL (4.0-11.0) Red Blood Count 4.99 x10^6/uL (3.50-5.40) Hemoglobin 13.8 g/dL (12.0-15.5) Hematocrit 41.6 % (36.0-47.0) Mean Corpuscular Volume 83 fL (79-100) Mean Corpuscular Hemoglobin 28 pg (25-35) Mean Corpuscular Hemoglobin Concent 33 g/dL (31-37) Red Cell Distribution Width 15.0 % (11.5-14.5) H Platelet Count 323 x10^3/uL (140-400) Neutrophils (%) (Auto) 57 % (31-73) Lymphocytes (%) (Auto) 32 % (24-48) Monocytes (%) (Auto) 8 % (0-9) Eosinophils (%) (Auto) 3 % (0-3) Basophils (%) (Auto) 1 % (0-3) Neutrophils # (Auto) 5.7 x10^3/uL (1.8-7.7) Lymphocytes # (Auto) 3.2 x10^3/uL (1.0-4.8) Monocytes # (Auto) 0.8 x10^3/uL (0.0-1.1) Eosinophils # (Auto) 0.3 x10^3/uL (0.0-0.7) Basophils # (Auto) 0.1 x10^3/uL (0.0-0.2) Sodium Level 140 mmol/L (136-145) Potassium Level 4.6 mmol/L (3.5-5.1) Chloride Level 104 mmol/L (98-107) Carbon Dioxide Level 31 mmol/L (21-32) Anion Gap 5 (6-14) L Blood Urea Nitrogen 14 mg/dL (7-20) Creatinine 0.9 mg/dL (0.6-1.0) Estimated GFR (Cockcroft-Gault) 63.2 BUN/Creatinine Ratio 16 (6-20) Glucose Level 101 mg/dL (70-99) H Calcium Level 9.0 mg/dL (8.5-10.1) Total Bilirubin 0.3 mg/dL (0.2-1.0) Aspartate Amino Transferase (AST) 19 U/L (15-37) Alanine Aminotransferase (ALT) 30 U/L (14-59) Alkaline Phosphatase 102 U/L (46-116) Total Protein 7.1 g/dL (6.4-8.2) Albumin 3.1 g/dL (3.4-5.0) L Albumin/Globulin Ratio 0.8 (1.0-1.7) L Laboratory Tests 01/29/21 14:55 Laboratory Tests 01/29/21 14:55 Vital Signs: Vital Signs Date Time Temp Pulse Resp B/P (MAP) Pulse Ox O2 Delivery O2 Flow Rate FiO2 01/29/21 13:47 97.0 69 20 150/70 (92) 96 Room Air 97.0 EKG: EKG: [] Radiology/Procedures: Radiology/Procedures: [] Impression: [facility] [address] [place] [address] IMAGING REPORT Signed PATIENT: JUDY ESPANA ACCOUNT: [id number] : 1955 LOCATION: ER AGE: 65 SEX: F EXAM STATUS: REG ER ORD. PHYSICIAN: JOLLY RUSSELL APRN REASON: pain with numbness in legs PROCEDURE: CT LUMBAR SPINE WO CONTRAST Exam: CT the thoracic and lumbar spine without contrast INDICATION: Pain with numbness in legs TECHNIQUE: Sequential axial images through the thoracic and lumbar spine obtained without IV contrast. Sagittal and coronal reformatted images were reconstructed from the axial data and reviewed. Exposure: One or more of the following in the visualized dose reduction techniques were utilized for this examination: 1. Automated exposure control 2. Adjustment of the MA and/or KV according to patient size 3. Use of iterative of reconstructive technique Comparisons: None FINDINGS: Thoracic spine: Vertebral body heights and alignment are well-maintained. Fracture to the thoracic spine is not identified. Schmorl's node noted at the superior endplate of T12. No significant spondylotic changes thoracic spine. Strandy opacities at dependent portion lungs likely representing atelectasis. There is a 6 mm nodule in the right lower lobe series 3 image 46. Lumbar spine: Vertebral body heights and alignment are well-maintained. There is a mildly angulated fracture of the left transverse process of L1, which is age indeterminate. Mild multilevel spondylotic changes lumbar spine with broad-based disc bulge at L3-L4, L4-L5 and L5-S1. Mild bilateral neural foraminal stenosis at L5-S1. Visualized paraspinal soft tissues are unremarkable. IMPRESSION: 1. Angulated fracture of the left transverse process of L1, age indeterminate. Correlate with point tenderness. 2. Multilevel spondylotic changes lumbar spine as described above 3. A 6 mm Nodule in the right lower lobe. A six-month follow-up chest CT is recommended. Electronically signed by: Dejan Lundberg MD (01/29/2021 3:44 PM) [facility] DICTATED and SIGNED BY: DEJAN LUNDBERG MD DATE: 01/29/21 [id number] 0 Course & Med Decision Making: Course & Med Decision Making Pertinent Labs and Imaging studies reviewed. (See chart for details) See HPI. Alert and oriented x4. Ambulatory with steady gait. Speaks in full clear sentences. She cannot move her legs. If I lift her leg it is drops to the bed bilaterally. She cannot wiggle her toes. She does not have any feeling when I touch her legs. This goes all the way up her legs. She denies having lost her bowel or bladder. She states that she cannot even feel the pressure my fingers on her legs. Lumbar bony tenderness with palpation. I did not feel a deformity. CT shows a lumbar fracture. I called Dr. Limon who states we need to get it MRI of her thoracic and lumbar. I have ordered this. Patient will be admitted to Dr. Powell. I have given her 125 of Solu-Medrol. She is also received fentanyl. She states the back pain goes across almost the flank area of her back bilaterally. Patient was able to lift her legs up to push her bottom up in the bed for the bedpan. Patient can now move her legs. Urinalysis coming back showing urinary tract infection. She is given levofloxacin. Anaphylactic reaction to penicillin. I spoke to Dr. Powell about this patient also. [] Andreaon Disclaimer: Celine Disclaimer: This electronic medical record was generated, in whole or in part, using a voice recognition dictation system. Departure Departure Impression: Primary Impression: Lower extremity numbness Additional Impressions: Back pain Qualified Codes: M54.9 - Dorsalgia, unspecified Lumbar vertebral fracture Qualified Codes: S32.019A - Unspecified fracture of first lumbar vertebra, initial encounter for closed fracture Disposition: ADMITTED INPATIENT Admitting Physician: Sussy Powell Condition: STABLE Referrals: SUSSY POWELL MD (PCP) JOLLY RUSSELL APRN Jan 29, 2021 16:22
[2021-01-29 16:55] LABS: BILIRUBIN,URINE NEGATIVE (NEG); CLARITY,URINE CLEAR; COLOR,URINE YELLOW; NITRITE,URINE POSITIVE (NEG); PROTEIN,URINE NEGATIVE (NEG-TRACE); UROBILINOGEN,URINE 0.2 mg/dL (0.2 mg/dL)
[2021-01-29 17:10] LABS: BACTERIA,URINE MANY /HPF (0-FEW); RBC,URINE 0 /HPF (0-2); WBC,URINE 20-40 /HPF (0-4)
[2021-01-29 18:16] VITALS: BP 103/45
--- NOTE | 2021-01-29 18:43 | EKG ---
[facility] [address] [place] [address] Test Date: 2021-01-29 Test Time: 18:37:07 Pat Name: JUDY ESPANA Department: Room: 434 1 Gender: F Departmental Shipping Clerk: : 1955 Requested By: JOLLY RUSSELL Order Number: [id number] Reading MD: Measurements Intervals [place] Rate: 59 P: 64 CO: 156 QRS: -6 QRSD: 80 T: 54 QT: 424 QTc: 424 Interpretive Statements SINUS RHYTHM LEFTWARD AXIS LOW LIMB LEAD VOLTAGE QRS(T) CONTOUR ABNORMALITY CONSISTENT WITH ANTEROSEPTAL INFARCT AGE UNDETERMINED ABNORMAL ECG RI6.02 Compared to ECG 10/08/2017 18:49:16 Left-axis deviation now present Myocardial infarct finding still present
[2021-01-29] MEDS ORDERED: oxyCODONE/APAP 5/325 1 TAB TABLET PO PRN ×3 (18:45→21:30)
[2021-01-29] MEDS: KETOROLAC 15 MG/ML VIAL. IVP PRN (18:53)
[2021-01-29 19:00] VITALS: BP 116/52
--- NOTE | 2021-01-29 20:47 | RAD ---
Exam: MRI thoracic spine without contrast INDICATION: Bilateral leg numbness and back pain TECHNIQUE: Multiplanar multisequence MRI of the thoracic spine was obtained without the administratio n of IV contrast Comparisons: None FINDINGS: Vertebral body heights and alignment are well-maintained. Bone marrow signal is normal. Spinal cord has a normal course, caliber and signal. No significant spondylotic change identified in the thoracic spine. Visualized paraspinal soft tissues are unremarkable. IMPRESSION: Unremarkable MRI of the thoracic spine. Electronically signed by: Dejan Huynh MD (01/29/2021 8:45 PM) [facility]
[2021-01-29] MEDS ORDERED: ALPRAZolam 0.25 MG TABLET PO PRN (21:30)
[2021-01-29] MEDS: DULoxetine HCL 30 MG CAPSULE.DR PO SCH (21:50)
[2021-01-29] MEDS: ALPRAZolam 1 MG TABLET PO PRN (21:51)
[2021-01-29] MEDS: hydrOXYzine 25 MG TABLET PO SCH (21:51)
[2021-01-29 23:00] VITALS: BP 126/61
--- NOTE | 2021-01-29 23:09 | RAD ---
Exam: MRI lumbar spine without contrast INDICATION: Bilateral leg numbness and back pain TECHNIQUE: Multiplanar multisequence MRI of the lumbar spine was obtained without the administration of IV contrast. Comparisons: CT lumbar spine same day FINDINGS: Vertebral body heights and alignment are well-maintained. Bone marrow signal is normal. Spinal cord has a normal course, caliber and signal. Conus medullaris terminates at the T12-L1 level. Mild broad-based disc bulge at L3-4, L4-L5 and L5-S1 without significant spinal canal stenosis. There is moderate bilateral neural foraminal stenosis at L5-S1. Mild edema noted within the L5-S1 disc space. Visualized paraspinal soft tissues are unremarkable. IMPRESSION: 1. Mild edema noted at the L5-S1 disc space, likely degenerative in etiology. Correlate with appropr iate lab values for infection. Postcontrast imaging could also be of benefit. 2. No acute traumatic injury identified in the lumbar spine. Spondylotic changes lumbar spine as erick cribed above greatest at L5-S1 with moderate bilateral neural foraminal stenosis. Electronically signed by: Dejan Huynh MD (01/29/2021 11:07 PM) [facility]
[2021-01-29 23:10] LABS: PROTHROMBIN TIME PATIENT 12.6 SEC (11.7-14.0)
[2021-01-30] MEDS: KETOROLAC 15 MG/ML VIAL. IVP PRN ×2 (01:41→17:30)
[2021-01-30 03:00] VITALS: BP 121/71
[2021-01-30 07:00] VITALS: BP 125/54
--- NOTE | 2021-01-30 08:58 | PDOC ---
Provider Note Date of Service: DATE: 01/30/21 TIME: 08:57 Provider Note dictated Justifications for Admission Other Justification SUSSY POWELL MD Jan 30, 2021 08:58
[2021-01-30] MEDS: hydrOXYzine 25 MG TABLET PO SCH ×2 (09:05→21:02)
[2021-01-30] MEDS: ASPIRIN 325 MG TABLET PO SCH (09:05)
[2021-01-30] MEDS: CETIRIZINE HCL 10 MG TABLET. PO SCH (09:05)
--- NOTE | 2021-01-30 09:52 | HP ---
ADMIT DATE: 01/29/2021 CHIEF COMPLAINT: Weakness in the legs and back pain. HISTORY OF PRESENT ILLNESS: A 65-year-old white female with known COPD and chronic nonmalignant pain, came in with 3 days of increasing weakness and sensory loss in both legs. She does not recall the recent fall and has had no other specific symptoms, fever, chills or symptoms of viral illness. COVID was negative. CT scan showed a fracture of the transverse process of L1 on the left. No space occupying lesion. MRI has been ordered and both the thoracic and lumbar spine were unremarkable as of this morning. She still states she has notable weakness in her legs, cannot feel below the waist on both sides. She denies bowel or bladder problems. PAST HISTORY: She takes modest dose of oxycodone for chronic pain, multiple other meds. She has COPD and previous coronary disease as well. ALLERGIES: NO ALLERGIES ARE KNOWN. SOCIAL HISTORY: Moderate smoker, , disabled, nondrinker, not physically active. FAMILY HISTORY: Unremarkable. REVIEW OF SYSTEMS: Unremarkable. OBJECTIVE: ENT: All within normal limits. NECK: No carotid bruits, masses or nodules. LUNGS: Decreased breath sounds. No wheezing or tachypnea. CARDIOVASCULAR: Regular rate. No irregular beat or murmur. ABDOMEN: Mildly distended. No masses or megaly is felt. No guarding is present. EXTREMITIES: She has 1+ lower extremity edema, has 1+ clubbing of fingernails. Skin is warm and dry in both lower extremities. NEUROLOGIC: She states she is not able to move her legs, can move her arms. She has normal sensation on her arms and chest and abdomen down to the inguinal areas bilaterally. She states she has no feeling below that area to light or coarse touch. No tremors noted. Gait was not tested. Cranial nerves intact. Mental status appears to be intact as well. GENITOURINARY AND RECTAL: Deferred. Rectal exam not done to assess for rectal tone. ASSESSMENT: L1 transverse process fracture, but the lower extremities sensory and motor losses cause is not defined at this time. There does not appear to be a spinal cord lesion involved that would explain it. No signs of active inflammation, diskitis, etc. are present. Urine shows urinary tract infection, but not symptomatic from that. PLAN: Levaquin for the UTI pending culture. Check sed rate, B12. Asked Neurology to see her regarding these physical symptoms and will need rehab as she is not safe for home at this point. Possible conversion reaction considered as well. NANETTE/MUKESH/JADEN DR: NANETTE/johnson TID: [id number]
[2021-01-30 11:00] VITALS: BP 126/57
--- NOTE | 2021-01-30 11:02 | NUR ---
SW following. Discussed with RN, pt from home with family, room air, regular diet. PT/OT ordered. Per RN, Dr. Limon stated no surgery needed. SW will continue to follow.
[2021-01-30 15:00] VITALS: BP 104/59
--- NOTE | 2021-01-30 18:00 | RAD ---
EXAM: XR PELVIS 1-2V 01/30/2021 3:20 PM CLINICAL INDICATION: Pain COMPARISON: None TECHNIQUE: AP view of the pelvis FINDINGS: No displaced fracture. Alignment is normal. Hip joint spaces are maintained. Pubic symphys is and sacroiliac joints are maintained. Lower lumbar spine is unremarkable. IMPRESSION: No acute osseous abnormality. Electronically signed by: Sarah Valentino MD (01/30/2021 5:57 PM) [id number]
[2021-01-30 19:30] VITALS: BP 115/53
--- NOTE | 2021-01-30 20:26 | CONS ---
DATE OF CONSULTATION: 01/30/2021 REFERRING PHYSICIAN: Sussy Reyes MD REASON: Acute onset of bilateral leg weakness and numbness. HISTORY OF PRESENT ILLNESS: The patient is a 65-year-old woman with tobacco abuse and known chronic obstructive pulmonary disease. She had been having 3 days of weakness and numbness of both legs. She has pain at the level of her waist. She lives with her at home. She has not been vaccinated for COVID because her father two weeks after a flu shot. She has undergone investigation since admission with MRI of the thoracic and lumbar spines as well as CAT scans. This did not reveal any type of compressive lesion. The patient states she has zero movement of the legs and no sensation of any kind. In the last month, she has had a little bit of trouble with her arms very intermittently, but this resolved very quickly. PAST MEDICAL HISTORY: 1. Chronic obstructive pulmonary disease. 2. Tobacco abuse. 3. Coronary artery disease. 4. Chronic pain, for which she uses chronic narcotic analgesics. ALLERGIES: PENICILLIN, STRAWBERRIES. MEDICATIONS: Prior to admission; alprazolam 0.25 mg 3 times per day as needed, aspirin 325 mg, cetirizine 10 mg, duloxetine 90 mg, hydroxyzine 25 mg twice per day, oxycodone/acetaminophen 5/325, one-two tablets every 4 hours as needed, and promethazine 25 mg every 6 hours as needed. FAMILY HISTORY: Noncontributory. SOCIAL HISTORY: She is a moderate smoker. She is and disabled. She does not drink alcohol or use recreational drugs. She is a sedentary. REVIEW OF SYSTEMS: She does not complain of any headache. There has been no change of vision or hearing. She is not aware of any cognitive loss. She has not had any trouble with chewing or swallowing. She always has a cough. She is short of breath. She does not have chest or abdominal pain. She has pain at her waist. She has not had fever or rash. She has not had gastrointestinal complaints. She has not lost control of bowel functioning and still feels that when her bladder is full, and is able to empty. She has not been incontinent of urine. She does get some swelling of her feet and ankles. She does not complain of extra bruising or excessive bleeding. She does have anxiety. She denies any specific increase in stressors. PHYSICAL EXAMINATION: VITAL SIGNS: The blood pressure was 126/57, pulse 54, respirations 18, temperature 97.6 degrees Fahrenheit orally. Oximetry was 86% on room air. Her weight was 81.8 kilograms, height 65 inches with a calculated body mass index of 30. NEUROLOGIC: She was alert, awake and cooperative. Speech was fluent and clear. She had a good fund of recent and remote knowledge. Attention and concentration was intact. She appeared well-groomed and well nourished. She was fully oriented. Examination of the cranial nerves revealed visual fr[place] were full to confrontation. Extraocular movements were intact. The eyes were conjugate. Pursuit movements were smooth and saccadic eye movements were without dysmetria. Pupils were 3 mm and reacted. Funduscopic exam did not reveal papilledema, exudate or hemorrhage. Facial sensation was intact. The muscles of mastication and facial expression were powerful symmetrically. Hearing was intact to finger rub. The palate arched symmetrically and the tongue was midline with full motion. Sternocleidomastoid and trapezius were powerful. Muscle bulk and tone was normal. There was no spasticity in the arms or legs. There was no arm drift. Power in the upper extremities was full and symmetric. She would not activate any musculature in the lower extremities except some internal and external rotation of the legs. Periodically she did activate the right ankle and toes, but would not do so definitely to command. Reflexes were 2/4 and symmetric in the upper and lower extremities including the ankles. The toes were downgoing bilaterally. Coordination testing in the upper extremities with finger to nose, fine motor and rapid alternating movements was well performed. Sensory exam was intact in the arms to pain, light touch, proprioception, graphesthesia, cold thermal and vibration. In the lower extremity, she denied any sensation to any sensory perception. Nail bed pressure in the feet did provoke a very vigorous pain response bilaterally. Gait was not testable. Auscultation of the carotid arteries did not reveal a bruit. Heart rhythm was regular, without a murmur. Peripheral pulses were symmetric. She also did have present abdominal reflexes in all 4 quadrants. She claimed the sensory level was just around the level of the umbilicus. Palpation of the pelvic bones did not provoke pain, but this was the region that she said, all the pain seemed to be referred. LABORATORY RESULTS: CBC was performed on 01/29/2021 revealing a normal white blood cell count, hemoglobin, hematocrit and platelet count. Sedimentation rate performed on 01/30/2021 was 34. Chemistries were performed on 01/29/2021 revealing normal electrolytes. BUN, creatinine and GFR were normal. Glucose was elevated at 101. Calcium and total protein were normal, but albumin was low at 3.1. The liver enzymes were not elevated. B12 was normal at 416 on 01/30/2021. PT/INR was 0.9 and APTT was 33 on 01/29/2021. Urinalysis performed on 01/29/2021 revealed moderate leukocyte esterase, 20-40 white blood cells, few squamous epithelial cells, many bacteria. COVID testing on 01/29/2021 was negative. DIAGNOSTIC RESULTS: CT scan of the thoracic and lumbar spines were performed without contrast. This revealed an angulated fracture of the left transverse process of L1, age indeterminate. There was multilevel spondylitic changes of lumbar spine. There was a 6 mm nodule in the right lower lobe. Six-month followup with CT chest was recommended. MRI of the lumbar spine was performed without contrast on 01/29/2021. This revealed mild edema of L5-S1 disk space, likely degenerative in etiology. No acute traumatic injury identified in the lumbar spine. Spondylitic changes in the lumbar spine, greatest at L5-S1 with moderate bilateral neural foraminal stenosis. Thoracic MRI of the spine was performed without contrast on 01/29/2021. This was an unremarkable MRI of the thoracic spine. Spinal cord was normal in course, caliber and signal. IMPRESSION: The patient is a 65-year-old woman who states she cannot move her legs and has severe pain. Neurologically, there is no evidence for a myelopathy. All the reflexes are completely normal without pathologic reflexes. Tone was completely normal without spasticity or flaccidity. She continues to have normal superficial abdominal reflexes, even though this is where she claims her sensory level is located. I do not feel that we are dealing with cervical or brain lesion. If we are dealing with a brain lesion, it would have to be bilaterally symmetric. If we are dealing with a cervical lesion, I would anticipate involvement of the arms as well as changes with tone, reflexes and sensation in a different pattern. She did at times seem to be able to move her right foot. Although she complains complete numbness, she did perceive nail bed pressure quite vigorously on both legs. It would seem more likely we are dealing with more of a conversion disorder. She would potentially be helped by working with physical therapy to try to get her moving. I will check a pelvic x-ray to make sure there is no fracture contributing to pain. I appreciate being involved in her care. DOREEN DR: Loren TID: [id number] CC: SUSSY REYES MD, AARTI DING MD
[2021-01-30] MEDS: LACTOBACILLUS RHAMNOSUS GG 1 CAPSULE. PO SCH (21:01)
[2021-01-30] MEDS: ALPRAZolam 1 MG TABLET PO PRN (21:02)
[2021-01-30] MEDS: DULoxetine HCL 30 MG CAPSULE.DR PO SCH (21:02)
[2021-01-30 23:26] VITALS: BP 120/55
[2021-01-31] MEDS: KETOROLAC 15 MG/ML VIAL. IVP PRN ×3 (00:05→13:47)
[2021-01-31 03:35] VITALS: BP 134/54
[2021-01-31 07:00] VITALS: BP 140/73
[2021-01-31] MEDS: CETIRIZINE HCL 10 MG TABLET. PO SCH (08:08)
[2021-01-31] MEDS: ALPRAZolam 1 MG TABLET PO PRN (08:08)
[2021-01-31] MEDS: hydrOXYzine 25 MG TABLET PO SCH (08:08)
[2021-01-31] MEDS: ASPIRIN 325 MG TABLET PO SCH (08:08)
[2021-01-31] MEDS: LACTOBACILLUS RHAMNOSUS GG 1 CAPSULE. PO SCH (08:08)
--- NOTE | 2021-01-31 09:02 | PDOC ---
Provider Note Date of Service: DATE: 01/31/21 TIME: 09:01 Provider Note vss, labs ok,jovany w/ dr Varma that sxs are nonanatomic- rec rehab, she is considering home if family ok- meds same Justifications for Admission Other Justification SUSSY POWELL MD Jan 31, 2021 09:02
[2021-01-31 11:00] VITALS: BP 142/58
--- NOTE | 2021-01-31 12:05 | PDOC ---
PROGRESS NOTES Date of Service DATE: 01/31/21 TIME: 12:02 Assessment Problems Medical Problems: (1) Back pain Status: Acute (2) Lower extremity numbness Status: Acute (3) Lumbar vertebral fracture Status: Acute Patient still complaining of back pain which could potentially be from urinary tract infection. Cipro was started by the primary care physician to treat E. coli. She is now able to move her toes and ankles more easily. She worked with physical therapy and was able to take 5 steps. Reflexes continue to be normal as is tone. She continues to have control over bladder but has not had a bowel movement. I still believe this is conversion rather than a spinal cord lesion with the negative investigation and negative neurologic exam. Plan She may need to go to inpatient rehabilitation to gain back her strength. This is effective even in situations of conversion disorder. I spoke with her at length and answered all of his questions. Subjective I still have pain at my waist. Objective Vital Signs Date Time Temp Pulse Resp B/P (MAP) Pulse Ox O2 Delivery O2 Flow Rate FiO2 01/31/21 11:00 97.7 54 18 142/58 (86) 91 Room Air 97.7 Intake and Output 01/31/21 07:00 Intake Total 480 ml Output Total 1 ml Balance 479 ml Intake Oral 480 ml Output Urine Total 1 ml # Voids 2 PHYSICAL EXAM She was sitting in a reclining chair. She was alert, awake and cooperative. Her affect was flat. The eyes were conjugate and face symmetric. Tone was normal. She was able to wiggle her toes well. Tendon reflexes were 2/4 and symmetric. Toes were not upgoing. Review of Relevant I have reviewed the following items morena (where applicable) has been applied. Labs Laboratory Tests Test 01/29/21 14:55 01/29/21 16:35 01/29/21 17:55 01/29/21 22:15 White Blood Count 10.0 x10^3/uL (4.0-11.0) Red Blood Count 4.99 x10^6/uL (3.50-5.40) Hemoglobin 13.8 g/dL (12.0-15.5) Hematocrit 41.6 % (36.0-47.0) Mean Corpuscular Volume 83 fL (79-100) Mean Corpuscular Hemoglobin 28 pg (25-35) Mean Corpuscular Hemoglobin Concent 33 g/dL (31-37) Red Cell Distribution Width 15.0 % (11.5-14.5) Platelet Count 323 x10^3/uL (140-400) Neutrophils (%) (Auto) 57 % (31-73) Lymphocytes (%) (Auto) 32 % (24-48) Monocytes (%) (Auto) 8 % (0-9) Eosinophils (%) (Auto) 3 % (0-3) Basophils (%) (Auto) 1 % (0-3) Neutrophils # (Auto) 5.7 x10^3/uL (1.8-7.7) Lymphocytes # (Auto) 3.2 x10^3/uL (1.0-4.8) Monocytes # (Auto) 0.8 x10^3/uL (0.0-1.1) Eosinophils # (Auto) 0.3 x10^3/uL (0.0-0.7) Basophils # (Auto) 0.1 x10^3/uL (0.0-0.2) Sodium Level 140 mmol/L (136-145) Potassium Level 4.6 mmol/L (3.5-5.1) Chloride Level 104 mmol/L (98-107) Carbon Dioxide Level 31 mmol/L (21-32) Anion Gap 5 (6-14) Blood Urea Nitrogen 14 mg/dL (7-20) Creatinine 0.9 mg/dL (0.6-1.0) Estimated GFR (Cockcroft-Gault) 63.2 BUN/Creatinine Ratio 16 (6-20) Glucose Level 101 mg/dL (70-99) Calcium Level 9.0 mg/dL (8.5-10.1) Total Bilirubin 0.3 mg/dL (0.2-1.0) Aspartate Amino Transf (AST/SGOT) 19 U/L (15-37) Alanine Aminotransferase (ALT/SGPT) 30 U/L (14-59) Alkaline Phosphatase 102 U/L (46-116) Total Protein 7.1 g/dL (6.4-8.2) Albumin 3.1 g/dL (3.4-5.0) Albumin/Globulin Ratio 0.8 (1.0-1.7) Urine Collection Type Unknown Urine Color Yellow Urine Clarity Clear Urine pH 6.0 (<5.0-8.0) Urine Specific [place] 1.010 (1.000-1.030) Urine Protein Negative mg/dL (NEG-TRACE) Urine Glucose (UA) Negative mg/dL (NEG) Urine Ketones (Stick) Negative mg/dL (NEG) Urine Blood Negative (NEG) Urine Nitrite Positive (NEG) Urine Bilirubin Negative (NEG) Urine Urobilinogen Dipstick 0.2 mg/dL (0.2 mg/dL) Urine Leukocyte Esterase Moderate (NEG) Urine RBC 0 /HPF (0-2) Urine WBC 20-40 /HPF (0-4) Urine Squamous Epithelial Cells Few /LPF Urine Bacteria Many /HPF (0-FEW) SARS-CoV-2 RNA (SUBHA) Negative (Negative) SARS-CoV-2 Antigen (Rapid) Negative (NEGATIVE) Prothrombin Time 12.6 SEC (11.7-14.0) Prothromb Time International Ratio 0.9 (0.8-1.1) Activated Partial Thromboplast Time 33 SEC (24-38) Test 01/30/21 10:00 Erythrocyte Sedimentation Rate 34 (0-25) Vitamin B12 Level 416 pg/mL (247-911) Microbiology 01/29/21 Urine Culture - Preliminary, Resulted Medications Current Medications Sodium Chloride 1,000 ml @ 1,000 mls/hr Q1H IV Last administered on 01/29/21at 15:36; Start 01/29/21 at 14:30; Stop 01/29/21 at 15:29; Status DC Methylprednisolone Sodium Succinate (SOLU-Medrol 125MG VIAL) 125 mg 1X ONCE IV Last administered on 01/29/21at 15:36; Start 01/29/21 at 15:15; Stop 01/29/21 at 15:16; Status DC Fentanyl Citrate (Fentanyl 2ml Vial) 50 mcg 1X ONCE IVP Last administered on 01/29/21at 15:35; Start 01/29/21 at 15:15; Stop 01/29/21 at 15:16; Status DC Fentanyl Citrate (Fentanyl 2ml Vial) 50 mcg 1X ONCE IVP Last administered on 01/29/21at 17:25; Start 01/29/21 at 17:00; Stop 01/29/21 at 17:01; Status DC Levofloxacin/ Dextrose 150 ml @ 100 mls/hr 1X ONCE IV ; Start 01/29/21 at 18:00; Stop 01/29/21 at 18:37; Status DC Oxycodone/ Acetaminophen (Percocet 5/325) 1 tab PRN Q4HRS PRN PO PAIN; Start 01/29/21 at 18:45; Stop 01/30/21 at 10:21; Status DC Levofloxacin (Levaquin) 250 mg DAILY06 PO Last administered on 01/31/21at 06:10; Start 01/29/21 at 18:45; Stop 02/01/21 at 09:00 Ketorolac Tromethamine (Toradol 15mg Vial) 15 mg PRN Q6HRS PRN IVP INFLAMMATION Last administered on 01/31/21at 06:11; Start 01/29/21 at 18:45; Stop 02/03/21 at 18:44 Alprazolam (Xanax) 1 mg PRN TID PRN PO ANXIETY / AGITATION; Start 01/29/21 at 21:30; Stop 01/29/21 at 21:42; Status DC Aspirin (PLDT Aspirin) 325 mg DAILY PO Last administered on 01/31/21at 08:08; Start 01/30/21 at 09:00 Cetirizine HCl (ZyrTEC) 10 mg DAILY PO Last administered on 01/31/21at 08:08; Start 01/30/21 at 09:00 Hydroxyzine HCl (Atarax) 25 mg BID PO Last administered on 01/31/21at 08:08; Start 01/29/21 at 22:00 Oxycodone/ Acetaminophen (Percocet 5/325) 1 tab PRN Q4HRS PRN PO PAIN mild to mod Last administered on 01/31/21at 08:14; Start 01/29/21 at 21:30 Duloxetine HCl (Cymbalta) 90 mg HS PO Last administered on 01/30/21at 21:02; Start 01/29/21 at 22:00 Oxycodone/ Acetaminophen (Percocet 5/325) 2 tab PRN Q4HRS PRN PO PAIN severe; Start 01/29/21 at 21:30; Stop 01/31/21 at 09:01; Status DC Alprazolam (Xanax) 1 mg PRN TID PRN PO ANXIETY / AGITATION Last administered on 01/31/21at 08:08; Start 01/29/21 at 21:45 Lactobacillus Rhamnosus (Culturelle) 1 cap BID PO Last administered on 01/31/21 at 08:08; Start 01/30/21 at 21:00 Active Scripts Active Reported Aspirin 325 Mg Tablet 1 Tab PO DAILY 30 Days Promethazine Hcl 25 Mg Tablet 1 Tab PO PRN Q6HRS PRN Take 1 tablet every 6 hours while awake for the first 48 hrs after surgery, then 1 tablet every 6 hrs as needed for nausea. Percocet 5-325 Mg Tablet (Oxycodone/Acetaminophen) 1 Each Tablet 1-2 Tab PO PRN Q4HRS PRN MDD 12 Tablet(s) 5 Days maximum 6 tablets daily Zyrtec (Cetirizine Hcl) 10 Mg Tablet 10 Mg PO DAILY Hydroxyzine Hcl 25 Mg Tablet 1 Tab PO BID Cymbalta (Duloxetine Hcl) 60 Mg Capsule.dr 90 Mg PO HS Xanax (Alprazolam) 0.25 Mg Tablet 1 Mg PO PRN TID PRN Vitals/I & O Vital Sign - Last 24 Hours 01/30/21 01/30/21 01/30/21 01/30/21 15:00 19:30 20:10 23:26 Temp 97.7 97.8 98.0 97.7 97.8 98.0 Pulse 79 63 60 Resp 18 18 18 B/P (MAP) 104/59 (74) 115/53 (73) 120/55 (76) Pulse Ox 92 91 92 O2 Delivery Room Air Room Air Room Air Room Air 01/31/21 01/31/21 01/31/21 01/31/21 03:35 07:00 08:00 11:00 Temp 97.4 97.7 97.7 97.4 97.7 97.7 Pulse 50 54 54 Resp 20 18 18 B/P (MAP) 134/54 (80) 140/73 (95) 142/58 (86) Pulse Ox 92 92 91 O2 Delivery Room Air Room Air Room Air Room Air Intake and Output 01/30/21 01/30/21 01/31/21 15:00 23:00 07:00 Intake Total 480 ml Output Total 1 ml Balance -1 ml 480 ml Justicifation of Admission Dx: Justifications for Admission: Justification of Admission Dx: Yes SHOBHA DUNN MD Jan 31, 2021 12:05
--- NOTE | 2021-01-31 13:51 | NUR ---
NICOLA following. Discussed with RN, therapy recommending SNF. SW met with pt, pt wants to go home to her daughter in law's home. SW offered home health - pt declined. Pt called her daughter in law on the phone - she is agreeable and can collect pt today. NICOLA sent Dr. Reyes a message notifying of pt request. RN also going to page him. No further SW needs.
--- NOTE | 2021-01-31 14:47 | NUR ---
Dr. Reyes gave orders to discharge from hospital to home with self cares, follow up with PCP in one week and continue with home medications. Pt is being discharge to daughter in laws house via private car and daughter in law transporting.
--- NOTE | 2021-02-01 03:01 | DS ---
DATE OF DISCHARGE: 01/31/2021 HOSPITAL SUMMARY: The patient came in with low back pain and sensation of loss of feeling below the waist and inability to move her legs. There has been no trauma or any other overt symptoms and no symptoms above the lower abdomen including the neck and arms. CT scan showed a small crack of the transverse process of L1. MRI of the thoracic and lumbar spine were unremarkable with no cord compression or any neurogenic source of problems. Laboratory studies were unremarkable as well urine culture pending. She was treated for UTI with oral Levaquin and was seen by Dr. Doshi of Neurology and Dr. Limon, both felt these were nonanatomic in nature and I concur with this finding. Most likely diagnosis was a conversion reaction, but the patient declined to accept this diagnosis. She was recommended to go to rehab as she was not able to bear weight and family was initially resistant to take her home, but then the patient decided against rehabilitation, desired to go home and the family concurred. The patient was walking some degree prior to leaving the hospital. FINAL DIAGNOSES: 1. Conversion reaction. 2. Urinary tract infection. OPERATION, PROCEDURES AND COMPLICATIONS: None. CONSULTATION: Dr. Doshi and Dr. Taran Limon. DISPOSITION: Continue all meds the same. Activity as tolerated. Follow up as needed. NANETTE/KENNEDY/SAMANTHA DR: NANETTE/johnson TID: [id number]
== END 2021-01-31 15:22 | disposition home or self-care (01) ==
LOC: ER 12:56 → INTOOBSV 16:51 → 4 NORTH 16:51
PROVIDERS: ADMIT Family Medicine; ATTEND Family Medicine
DX: S32.019A Unspecified fracture of first lumbar vertebra, initial encounter for closed fracture (principal); Z20.822 Contact with and (suspected) exposure to COVID-19; F32.9 Major depressive disorder, single episode, unspecified; G47.33 Obstructive sleep apnea (adult) (pediatric); F17.200 Nicotine dependence, unspecified, uncomplicated; F12.90 Cannabis use, unspecified, uncomplicated; R53.1 Weakness; R20.0 Anesthesia of skin; G89.29 Other chronic pain; J44.9 Chronic obstructive pulmonary disease, unspecified; I25.10 Atherosclerotic heart disease of native coronary artery without angina pectoris; N39.0 Urinary tract infection, site not specified; F44.9 Dissociative and conversion disorder, unspecified; X58.XXXA Exposure to other specified factors, initial encounter; Y93.89 Activity, other specified; Y92.89 Other specified places as the place of occurrence of the external cause; Y99.8 Other external cause status
CPT/HCPCS: 36415; 72128; 72131; 72146; 72148; 72170; 80053; 81001; 82607; 85025; 85610; 85651; 85730; 87077; 87086; 87186; 87426; 93005; 96361; 96374; 96375; 96376; 97162; 97166; 97535; 99285; G0378; J1885; J2930; J3010; J7030; U0003; U0005; G0379